=== PATIENT | male | born 1945 | race Caucasian/White ===

== ENCOUNTER → 2020-06-18 | Outpatient (CLI) | payer MEDICARE, OTHER ==
[~2020-06-18] MED LIST: ASPI-479 PO; FISH12002 PO; LISI-729 PO; LORA-404 PO; METF-397 PO; SIMV20TA26 PO
== END ==
LOC: GIR 16:25
PROVIDERS: ATTEND Family Medicine
DX: Z01.89 Encounter for other specified special examinations (principal)
CPT/HCPCS: 84132

== ENCOUNTER → 2020-06-28 | Outpatient (CLI) | payer MEDICARE ==
--- NOTE | 2020-06-28 20:00 | Diagnostic Imaging Report ---
EXAM: PET/CT INDICATION: Chest wall mass TECHNIQUE: PET/CT imaging was obtained from the base of the skull through the pelvis after the administration of 10.92 of F-18 fluorodeoxyglucose injected into the right antecubital fossa. CT imaging was utilized for localization and attenuation correction purposes. The low energy CT utilized for attenuation correction is not considered to be of high enough spatial resolution to allow in and of itself a separate anatomical analysis. Height: 5' 6" Weight: 170 pounds. Blood glucose: 91. COMPARISON: There are no prior PET/CT examinations available for comparison. The recent CT chest exam performed at [facility] in [place], [place], on 06/16/2020 noted a mass density along the posterior aspect of the right upper lobe measuring 4.9 x 3.5 cm. This mass did appear to be eroding the right 3rd rib and the right transverse process of the 3rd thoracic vertebra. On this exam, the mass is again identified. This mass is intensely hypermetabolic with a maximum SUV of 10.0. Consequently, I feel this mass should be considered neoplastic until proven otherwise. The previous CT chest exam also identified a 2.8 x 2.1 cm well-circumscribed nodule with a few internal calcifications along the medial aspect of the left lung base. That finding is again identified on this study and seems no different in size or appearance. This lesion is not hypermetabolic with a maximum SUV of only 1.5. I do feel this is most likely a benign process, such as a hamartoma. There is a small focus of slightly increased activity in the distal esophagus. The maximum SUV in this area is only 2.9. This could be secondary to physiologic activity alone. The possibility of mild esophagitis should also be considered.. It would be much less likely that there is an underlying neoplastic process in this region. The CT images show some thickening of the wall of the esophagus in this area but this may be secondary to incomplete distention. If further evaluation is desired, then either an upper gastrointestinal exam or preferably endoscopy would be recommended. There is no other hypermetabolic activity to suggest the presence of malignancy. Physiologic activity is seen in the kidneys, bowel, bladder and brain. The CT images failed to show any sign of an acute abnormality. IMPRESSION: 1. The large mass along the posterior aspect of the right upper lobe seen previously is intensely hypermetabolic and consequently should be considered neoplastic until proven otherwise. 2. The benign-appearing nodular density in the medial aspect of the left lung base is not hypermetabolic. 3. The slightly increased activity in the distal esophagus is of uncertain etiology. Considerations and recommendations as above. 4. There is no other hypermetabolic activity to suggest the presence of malignancy. Dictated by: Dictated on workstation # [id number]
== END ==
LOC: RAD 10:00
PROVIDERS: ATTEND Nurse Practitioner Family
DX: R91.8 Other nonspecific abnormal finding of lung field (principal); M25.511 Pain in right shoulder
CPT/HCPCS: 78815; A9552

== ENCOUNTER 2020-06-30 07:26 | Outpatient (CLI) | payer MEDICARE ==
[~2020-06-30] VITALS: Ht 167.6 cm; Wt 75.8 kg
[2020-06-30] VITALS (12 sets, daily range): BP systolic 112–174; BP diastolic 60–89
[2020-06-30 07:57] LABS: HEMOGLOBIN 12.7 g/dL (13.3-17.7); MEAN PLATELET VOLUME 9.8 fL (9.0-12.2); WHITE BLOOD COUNT 8.1 10^3/uL (4.3-11.0)
[2020-06-30 08:24] LABS: INR 1.1 (0.8-1.4); PROTHROMBIN TIME PATIENT 14.2 SEC (12.2-14.7)
[2020-06-30] MEDS ORDERED: LORA-404 PO (08:25)
[2020-06-30] MEDS ORDERED: ASPI-479 PO (08:27)
[2020-06-30] MEDS ORDERED: METF-397 PO (08:27)
[2020-06-30] MEDS ORDERED: LISI-729 PO (08:27)
[2020-06-30] MEDS ORDERED: FISH12002 PO (08:27)
[2020-06-30] MEDS ORDERED: SIMV20TA26 PO (08:27)
[2020-06-30] MEDS ORDERED: LIDOCAINE 1% INJ 20 ML 20 ML VIAL INJ ONE (08:30)
[2020-06-30] MEDS ORDERED: NS IV 500 ML 500 ML IV PRN (08:30)
[2020-06-30] MEDS ORDERED: MIDAZOLAM 2 MG/2 ML (VERSED) VIAL IVP ONE (08:30)
[2020-06-30] MEDS ORDERED: fentaNYL INJ 100 MCG/2 ML AMP IVP ONE (08:30)
--- NOTE | 2020-06-30 11:47 | Diagnostic Imaging Report ---
INDICATION: Status post lung biopsy. COMPARISON: None FINDINGS: Single frontal radiographic view of the chest was obtained and demonstrates no pneumothorax status post lung biopsy. There is prominent opacity within the medial margins of the right apex. This corresponds to biopsied lesion. There is no large effusion. Cardiac silhouette and pulmonary vasculature are within normal limits. Osseous structures show no gross acute abnormalities. IMPRESSION: 1. No pneumothorax status post right lung lesion biopsy. Dictated by: Dictated on workstation # [id number]
--- NOTE | 2020-06-30 11:56 | Diagnostic Imaging Report ---
INDICATION: Right lung mass. Patient presents for CT-guided biopsy. TECHNIQUE: All CT scans use one or more of the following dose optimizing techniques: automated exposure control, MA and/or KvP adjustment based on patient size and exam type or iterative reconstruction. DETAILS OF THE PROCEDURE: The patient was brought to the CT suite and placed on the table in the prone position. Axial imaging through the chest was performed to evaluate for an appropriate entry site. The procedure was performed utilizing conscious sedation with Radiology nursing and constant patient monitoring. The patient was given 50 mg of Fentanyl intravenously. The total procedure time was 7 minutes. The upper right posterior thorax was prepped and draped in the usual sterile fashion. A small amount of 1% lidocaine was utilized for local anesthesia. A 20-gauge coaxial Temno needle was advanced and placed with its tip within the mass in the right lung apex. Three core biopsies were obtained. A blood patch was injected during needle removal. Hemostasis was obtained using manual compression. The patient tolerated the procedure well and left the Department in stable condition. A chest x-ray will be obtained in 2 hours to evaluate for pneumothorax. No complicating features were identified on post procedure images. IMPRESSION: Successful CT-guided right lung mass biopsy. Pathology results are currently pending. Dictated by: Dictated on workstation # [id number]
--- NOTE | 2020-06-30 15:47 | Pre-Op Note & Conscious Sedat ---
Pre-Operative Progress Note H&P Reviewed The H&P was reviewed, patient examined and no changes noted. Date H&P Reviewed: Jun 30, 2020 Time H&P Reviewed: 09:00 Pre-Op Diagnosis: Lung mass Conscious Sedation Pre-Proced Time 09:00 ASA Score 2 For ASA 3 and 4: Consider anesthesia and medical clearance. Also, for patients with a history of failed moderate sedation consider anesthesia. Airway Lungs Heart ASA score ASA 1: a normal healthy patient ASA 2: a patient with a mild systemic disease (mid diabetes, controlled hypertension, obesity ASA 3: a patient with a severe systemic disease that limits activity (angina, COPD, prior Myocardial infarction) ASA 4: a patient with an incapacitating disease that is a constant threat to life (CHF, renal failure) ASA 5: a moribund patient not expected to survive 24 hrs. (ruptured aneurysm) ASA 6: a declared brain- patient whose organs are being harvested. For emergent operations, add the letter E after the classification Mallampati Classification Grade 2 Sedation Plan Analgesia, Amnesia, Plan communicated to team members, Discussed options with patient/fam, Discussed risks with patient/fam The patient is an appropriate candidate to undergo the planned procedure, sedation, and anesthesia. The patient immediately re-assessed prior to indication. VIVEK SEWELL MD Jun 30, 2020 15:47
== END 2020-06-30 11:40 | disposition home or self-care (01) ==
LOC: SDC 07:26
PROVIDERS: ATTEND Nurse Practitioner Family
DX: R91.8 Other nonspecific abnormal finding of lung field (principal)
CPT/HCPCS: 36415; 71045; 77012; 85027; 85610; 85730

== ENCOUNTER 2020-08-03 10:18 | Outpatient (CLI) | payer MEDICARE ==
[~2020-08-03] VITALS: Ht 167.6 cm; Wt 79.5 kg
[2020-08-03] MEDS ORDERED: HYDR-3817 PO (10:34)
[2020-08-03] MEDS ORDERED: OMEP40CA27 PO (10:34)
[2020-08-04] MEDS ORDERED: HYDR-3817 PO (09:11)
== END 2020-08-03 10:49 | disposition home or self-care (01) ==
LOC: PREOP 10:18
PROVIDERS: ATTEND Surgery
DX: Z01.818 Encounter for other preprocedural examination (principal)

== ENCOUNTER 2020-08-04 08:34 | Day surgery (SDC) | payer MEDICARE ==
[~2020-08-04] VITALS: Ht 167.6 cm; Wt 79.5 kg
[2020-08-04] VITALS (8 sets, daily range): BP systolic 111–156; BP diastolic 54–76
[~2020-08-04 08:34] MED LIST changes: +HYDR-3817 PO; +OMEP40CA27 PO
[2020-08-04] MEDS ORDERED: ceFAZolin 2 GM IV Premixed 50 ML ONE (08:37)
[2020-08-04] MEDS: LACTATED RINGERS 1,000 ML IV PRN ×2 (08:45→10:58)
[2020-08-04] MEDS ORDERED: fentaNYL INJ 100 MCG/2 ML AMP ONE (08:58)
[2020-08-04] MEDS ORDERED: PROPOFOL INJECTION 50 ML IV ONE (08:58)
--- NOTE | 2020-08-04 09:09 | Progress Note-Pre Operative ---
Pre-Operative Progress Note H&P Reviewed The H&P was reviewed, patient examined and no changes noted. Date Seen by Provider: August 04, 2020 Time Seen by Provider: 09:05 Date H&P Reviewed: August 04, 2020 Time H&P Reviewed: 09:00 Pre-Operative Diagnosis: Right Lung cancer DEEPA CHEN APRN August 04, 2020 09:09
[2020-08-04] MEDS ORDERED: HYDR-3817 PO (09:11)
--- NOTE | 2020-08-04 09:12 | Discharge Inst-Surgical ---
D/C Lap Instructions-KIDO Reconcile Patient Problems Problems Reviewed?: Yes New, Converted, or Re-Newed RX: RX on Chart Follow Up Appt as needed Activity as tolerated No driving for 24 hours No driving while on pain medications Incentive Spirometry use every 2 hours while awake Regular Diet Symptoms to Report: Fever over 101 degree F, Nausea/Vomiting Infection Signs and Symptoms to report: Increased redness, Foul odor of wound, Increased drainage Bathing instructions: May shower Operative Area Clean/Dry; Keep incision clean/dry If any problems/questions: Contact your physician or go to Emergency Room DEEPA CHEN APRN August 04, 2020 09:12
[2020-08-04] MEDS ORDERED: HYDROcodone/APAP 5 MG/325 MG (LORTAB) TAB PO ONE (09:15)
[2020-08-04] MEDS ORDERED: morphine INJ 10 MG/ML 1ML (SYR OR VIAL) IVP PRN (09:15)
[2020-08-04] MEDS ORDERED: ACETAMINOPHEN 325 MG TABLET PO PRN (09:15)
[2020-08-04] MEDS ORDERED: ONDANSETRON 4 MG/2 ML (SDV) Z0FRAN IVP PRN (09:15)
[2020-08-04] MEDS ORDERED: LIDOCAINE/EPI 1%-1:100,000 (XYLOCAINE) 20ML ONE (09:42)
[2020-08-04] MEDS ORDERED: 0.9% SODIUM CHLORIDE PF INJ 20 ML VIAL ONE (09:42)
[2020-08-04] MEDS ORDERED: HEParin (CENTRAL IV FLUSH) 500 UNIT/5 ML SYR ONE (09:42)
[2020-08-04] MEDS ORDERED: ceFAZolin 2 GM IV Premixed 50 ML IV ONE (10:00)
--- NOTE | 2020-08-04 10:48 | Progress Note-Post Operative ---
Post-Operative Progess Note Surgeon (s)/Photographic Intelligence Officer (s) Surgeon PHONG DUARTE MD Photographic Intelligence Officer: gary cruz DRUG ABUSE RESISTANCE EDUCATION OFFICER Pre-Operative Diagnosis right lung cancer Post-Operative Diagnosis same Procedure & Operative Findings Date of Procedure 08/04/20 Procedure Performed/Findings left subclavian groshong implantable catheter under flouroscopy. Anesthesia Type mac with local Estimated Blood Loss Estimated blood loss (mL): minimal Specimens/Packing Specimens Removed none PHONG DUARTE MD August 04, 2020 10:48
[2020-08-04] MEDS ORDERED: morphine INJ 10 MG/ML 1ML (SYR OR VIAL) IVP ONE (11:00)
--- NOTE | 2020-08-04 11:00 | Anesthesia-General Post-Op ---
MAC Patient Condition Mental Status/LOC: Same as Preop Cardiovascular: Satisfactory Nausea/Vomiting: Absent Respiratory: Satisfactory Pain: Controlled Complications: Absent Post Op Complications Complications None Follow Up Care/Instructions Patient Instructions None needed. Anesthesiology Discharge Order Discharge Order Patient is doing well, no complaints, stable vital signs, no apparent adverse anesthesia problems. No complications reported per nursing. DAIN WHITFIELD CRNA August 04, 2020 11:00
--- NOTE | 2020-08-04 11:34 | Diagnostic Imaging Report ---
INDICATION: Evaluation of catheter placement. TECHNIQUE: AP view of the chest is obtained with comparison made to study of 06/30/2020. FINDINGS: There has been placement of left anterior chest wall port with catheter tip projecting over the mid superior vena cava. There is continued right apical pulmonary mass without evidence of pneumothorax. Prominent interstitial markings are seen bilaterally. No definite pleural fluid is seen. IMPRESSION: No evidence of complication post placement of left anterior chest wall port. There is continued right upper lobe opacity and correlation with previous biopsy results would be useful. Dictated by: Dictated on workstation # [id number]
--- NOTE | 2020-08-04 12:33 | Diagnostic Imaging Report ---
Indication: History of right lung mass. COMPARISON: Chest radiograph from later same day Total fluoroscopy time: 3 seconds Total number fluoroscopic images saved: 1 FINDINGS: Single intraoperative image intensifier view of the chest was obtained during Port-A-Cath placement. Images provided shows left-sided approach. Central tip of the catheter is not well-visualized. Evaluation for pneumothorax is suboptimal given fluoroscopic modality. Please note, interpreting radiologist was not present during the procedure. IMPRESSION: 1. Fluoroscopic guidance provided during Port-A-Cath placement as above. Dictated by: Dictated on workstation # [id number]
--- NOTE | 2020-08-04 17:28 | OPERATIVE REPORT ---
DATE OF SERVICE: 08/04/2020 ATTENDING PRIMARY CARE PHYSICIAN: Tong Yadav DO PREOPERATIVE DIAGNOSIS: Right lung cancer. POSTOPERATIVE DIAGNOSIS: Right lung cancer. PROCEDURE: Placement of left subclavian Groshong implantable catheter under fluoroscopy. SURGEON: Phong Duarte MD CHANGE OF ADDRESS CLERK: Bashir Suero APRN. ANESTHESIA: Monitored anesthesia care with local. ESTIMATED BLOOD LOSS: Minimal. FINDINGS: Catheter tip at superior vena cava -- right atrial junction. DISPOSITION: The patient tolerated the procedure well. INDICATIONS: The patient is a 75-year-old male known to us. He was initially referred over to us on 05/02/2020 for a right upper abdominal quadrant pain and did undergo an ultrasound, which was positive for gallstones. He continued to have discomfort, especially upon coughing and underwent further workup, which encompassed a CT scan, which did show a mass of the posterior aspect of the right lung, 4.9 cm in size. He was then referred to pulmonology as well as oncology and the lesion was consistent with a carcinoma. The patient will now undergo chemotherapy and will require Groshong implantable catheter. DESCRIPTION OF PROCEDURE: The patient was brought to the operating room, laid supine on the table. After adequate IV pain and sedative medications and monitored anesthesia care, the chest and neck were prepped and draped in standard surgical fashion. A 1% lidocaine with epinephrine was used to anesthetize the left subclavian region and the left subclavian vein was then cannulated with drawing of venous blood. The guidewire was then inserted under fluoroscopy. A skin incision was then made using a 15 blade and the dilator and sheath were then placed over the guidewire. The guidewire and dilator were then removed and the Groshong implantable catheter was placed until the catheter tip was at the superior vena caval -- right atrial junction. The sheath was then removed. The inner wire within the catheter was then removed and the catheter cut down to size and port placed onto the catheter. We then proceeded to create the chest reservoir by extending the skin incision laterally using a 15 blade. A plane was then created between the subcutaneous fat and anterior pectoralis fascia using blunt dissection as well as electrocautery. The port was then placed into the reservoir and sutured to the pectoralis fascia using interrupted 3-0 Vicryl sutures. The subcutaneous tissue was then reapproximated using interrupted 3-0 Vicryl sutures and the skin was closed using 4-0 Monocryl running subcuticular suture. Wound was then cleaned and covered with Dermabond. The patient tolerated the procedure well. We will get a post-procedure chest x-ray and once placement was confirmed, the port may be accessed and used at any time. Job ID: [id number] DocumentID: [id number] Dictated Date: 08/04/2020 10:59:51 Oil Deliverer Date: 08/04/2020 17:27:28 Dictated By: PHONG DUARTE MD
== END 2020-08-04 12:30 | disposition home or self-care (01) ==
LOC: SDC 08:34
PROVIDERS: ATTEND Surgery
DX: C34.11 Malignant neoplasm of upper lobe, right bronchus or lung (principal); I10 Essential (primary) hypertension; E78.5 Hyperlipidemia, unspecified; E78.00 Pure hypercholesterolemia, unspecified; E11.9 Type 2 diabetes mellitus without complications; Z79.84 Long term (current) use of oral hypoglycemic drugs; Z87.891 Personal history of nicotine dependence; Z79.899 Other long term (current) drug therapy; Z79.82 Long term (current) use of aspirin; Z79.891 Long term (current) use of opiate analgesic; Z90.49 Acquired absence of other specified parts of digestive tract; Z80.6 Family history of leukemia
CPT/HCPCS: 36561; 71045; 76000; 82947; 87081; C1788

== ENCOUNTER 2020-09-24 09:00 | Outpatient (CLI) | payer MEDICARE ==
[~2020-09-24] VITALS: Ht 152 cm; Wt 79.5 kg
[~2020-09-24 09:00] MED LIST changes: -OMEP40CA27 PO; +OMEP40CA6 PO
[2020-09-24] MEDS ORDERED: cefTRIAXone 1,000 MG VIAL ONE (09:42)
[2020-09-24] MEDS ORDERED: WATER (STERILE) FOR INJECTION 0 ML ONE (09:43)
[2020-09-24 09:45] VITALS: BP 130/63
[2020-09-24] MEDS ORDERED: cefTRIAXone 2,000 MG/SWFI 20 ML IV PUSH IV ONE ×2 (09:45)
== END 2020-09-24 10:30 ==
LOC: SDC 09:00
PROVIDERS: ATTEND Internal Medicine Hematology & Oncology
DX: Z51.81 Encounter for therapeutic drug level monitoring (principal)
CPT/HCPCS: 96374

== ENCOUNTER → 2020-09-30 | Outpatient (CLI) | payer MEDICARE ==
[~2020-09-30] MED LIST changes: +CATHETER FLUSH 10 ML SYR IV PRN; +HOLD METFORMIN - RECEIVED CONTRAST 20 ML VIAL IV SCH; +IOHEXOL 350 MG/ML 100 ML (OMNIPAQUE 350) VIAL IV ONE; +NS 100 ML (IVPB) BAG IV ONE
--- NOTE | 2020-09-30 13:15 | Diagnostic Imaging Report ---
PROCEDURE: CT abdomen and pelvis with and without contrast. TECHNIQUE: Precontrast acquisitions were acquired through the abdomen and pelvis. Multiple contiguous axial images were obtained through the abdomen and pelvis after the administration of intravenous contrast. Auto Exposure Controls were utilized during the CT exam to meet ALARA standards for radiation dose reduction. INDICATION: Right lower leg edema. History of lung cancer. History of radiation therapy. COMPARISON: None FINDINGS: Included portions of the lung bases are clear. CT ABDOMEN: Small bowel loops are nondistended. Normal appendix is identified. Moderate air and stool is noted scattered throughout the colon. Nonobstructive left renal calculus is identified. Otherwise, the kidneys, adrenal glands, spleen, pancreas, and liver have a normal CT appearance. There is no loculated fluid collection, free fluid, nor free air within the abdomen. No abnormal mesenteric or retroperitoneal adenopathy is seen. Osseous structures show no acute abnormalities. CT PELVIS: Urinary bladder is grossly unremarkable. There is no loculated fluid collection, free fluid, or free air within the pelvis. Fat-containing right inguinal hernia is noted. No abnormal adenopathy is seen. There is moderate scattered calcified aortic and arterial atherosclerosis. Osseous structures show no acute abnormalities. IMPRESSION: 1. No acute abnormality is seen within the abdomen or pelvis. 2. Moderate colonic air and stool. Please correlate for constipation. 3. Nonobstructive left renal calculus. Dictated by: Dictated on workstation # [id number]
== END ==
LOC: RAD 11:37
PROVIDERS: ATTEND Internal Medicine Hematology & Oncology
DX: C34.11 Malignant neoplasm of upper lobe, right bronchus or lung (principal); C79.51 Secondary malignant neoplasm of bone; N20.0 Calculus of kidney; R60.0 Localized edema; Z92.3 Personal history of irradiation
CPT/HCPCS: 74178

== ENCOUNTER 2020-10-18 10:33 | Outpatient (RCR) | payer MEDICARE ==
[2020-07-29 08:56] LABS: BASOPHILS # (AUTO) 0.1 10^3/uL (0.0-0.1); BASOPHILS % (AUTO) 1 % (0-10); EOSINOPHILS # (AUTO) 0.2 10^3/uL (0.0-0.3); EOSINOPHILS % (AUTO) 3 % (0-10); HEMATOCRIT 37 % (40-54); HEMOGLOBIN 11.1 g/dL (13.3-17.7); LYMPHOCYTES # (AUTO) 1.5 10^3/uL (1.0-4.0); LYMPHOCYTES % (AUTO) 21 % (12-44); MEAN CORPUSCULAR HEMOGLOBIN 26 pg (25-34); MEAN CORPUSCULAR HGB CONC 30 g/dL (32-36); MEAN CORPUSCULAR VOLUME 86 fL (80-99); MEAN PLATELET VOLUME 9.3 fL (9.0-12.2); MONOCYTES # (AUTO) 0.7 10^3/uL (0.0-1.0); MONOCYTES % (AUTO) 10 % (0-12); NEUTROPHILS # (AUTO) 4.6 10^3/uL (1.8-7.8); NEUTROPHILS % (AUTO) 64 % (42-75); PLATELET COUNT 319 10^3/uL (130-400); WHITE BLOOD COUNT 7.2 10^3/uL (4.3-11.0)
[2020-07-29 09:19] LABS: ALANINE AMINOTRANSFERASE 17 U/L (0-55); ALBUMIN 3.4 GM/DL (3.2-4.5); ALKALINE PHOSPHATASE 82 U/L (40-136); BILIRUBIN,TOTAL 0.4 MG/DL (0.1-1.0); BUN/CREATININE RATIO 14; CALCIUM 8.9 MG/DL (8.5-10.1); CARBON DIOXIDE 26 MMOL/L (21-32); CHLORIDE 103 MMOL/L (98-107); CREATININE SERUM 0.94 MG/DL (0.60-1.30); GFR ESTIMATED > 60; GLUCOSE 134 MG/DL (70-105); POTASSIUM 3.9 MMOL/L (3.6-5.0); SODIUM 138 MMOL/L (135-145)
[2020-08-24 10:17] LABS: BASOPHILS % (AUTO) 0 % (0-10); EOSINOPHILS % (AUTO) 0 % (0-10); HEMATOCRIT 35 % (40-54); HEMOGLOBIN 10.3 g/dL (13.3-17.7); LYMPHOCYTES # (AUTO) 0.7 10^3/uL (1.0-4.0); LYMPHOCYTES % (AUTO) 6 % (12-44); MEAN CORPUSCULAR HEMOGLOBIN 25 pg (25-34); MEAN CORPUSCULAR HGB CONC 30 g/dL (32-36); MEAN CORPUSCULAR VOLUME 83 fL (80-99); MEAN PLATELET VOLUME 9.2 fL (9.0-12.2); MONOCYTES # (AUTO) 0.5 10^3/uL (0.0-1.0); MONOCYTES % (AUTO) 4 % (0-12); NEUTROPHILS # (AUTO) 10.8 10^3/uL (1.8-7.8); NEUTROPHILS % (AUTO) 90 % (42-75); PLATELET COUNT 398 10^3/uL (130-400); WHITE BLOOD COUNT 12.1 10^3/uL (4.3-11.0)
[2020-08-24 10:36] LABS: ALANINE AMINOTRANSFERASE 12 U/L (0-55); ALBUMIN 3.6 GM/DL (3.2-4.5); ALKALINE PHOSPHATASE 69 U/L (40-136); BILIRUBIN,TOTAL 0.3 MG/DL (0.1-1.0); BUN/CREATININE RATIO 22; CALCIUM 9.8 MG/DL (8.5-10.1); CARBON DIOXIDE 24 MMOL/L (21-32); CHLORIDE 103 MMOL/L (98-107); CREATININE SERUM 1.09 MG/DL (0.60-1.30); GFR ESTIMATED > 60; GLUCOSE 173 MG/DL (70-105); POTASSIUM 4.2 MMOL/L (3.6-5.0); SODIUM 137 MMOL/L (135-145); TOTAL PROTEIN 8.6 GM/DL (6.4-8.2)
[2020-08-31 10:14] LABS: BASOPHILS % (AUTO) 0 % (0-10); EOSINOPHILS # (AUTO) 0.2 10^3/uL (0.0-0.3); EOSINOPHILS % (AUTO) 7 % (0-10); HEMATOCRIT 36 % (40-54); HEMOGLOBIN 10.5 g/dL (13.3-17.7); LYMPHOCYTES # (AUTO) 0.8 10^3/uL (1.0-4.0); LYMPHOCYTES % (AUTO) 22 % (12-44); MEAN CORPUSCULAR HEMOGLOBIN 24 pg (25-34); MEAN CORPUSCULAR HGB CONC 30 g/dL (32-36); MEAN CORPUSCULAR VOLUME 82 fL (80-99); MEAN PLATELET VOLUME 9.3 fL (9.0-12.2); MONOCYTES # (AUTO) 0.3 10^3/uL (0.0-1.0); MONOCYTES % (AUTO) 8 % (0-12); NEUTROPHILS # (AUTO) 2.1 10^3/uL (1.8-7.8); NEUTROPHILS % (AUTO) 61 % (42-75); PLATELET COUNT 247 10^3/uL (130-400); WHITE BLOOD COUNT 3.5 10^3/uL (4.3-11.0)
[2020-08-31 10:32] LABS: BUN/CREATININE RATIO 18; CARBON DIOXIDE 24 MMOL/L (21-32); CHLORIDE 102 MMOL/L (98-107); CREATININE SERUM 0.87 MG/DL (0.60-1.30); GFR ESTIMATED > 60; GLUCOSE 136 MG/DL (70-105); POTASSIUM 4.2 MMOL/L (3.6-5.0); SODIUM 136 MMOL/L (135-145)
[2020-09-07 10:14] LABS: BASOPHILS % (AUTO) 1 % (0-10); EOSINOPHILS # (AUTO) 0.1 10^3/uL (0.0-0.3); EOSINOPHILS % (AUTO) 3 % (0-10); HEMATOCRIT 32 % (40-54); HEMOGLOBIN 9.4 g/dL (13.3-17.7); LYMPHOCYTES # (AUTO) 0.5 10^3/uL (1.0-4.0); LYMPHOCYTES % (AUTO) 14 % (12-44); MEAN CORPUSCULAR HEMOGLOBIN 25 pg (25-34); MEAN CORPUSCULAR HGB CONC 30 g/dL (32-36); MEAN CORPUSCULAR VOLUME 82 fL (80-99); MONOCYTES # (AUTO) 0.6 10^3/uL (0.0-1.0); MONOCYTES % (AUTO) 17 % (0-12); NEUTROPHILS # (AUTO) 2.2 10^3/uL (1.8-7.8); NEUTROPHILS % (AUTO) 65 % (42-75); PLATELET COUNT 145 10^3/uL (130-400); WHITE BLOOD COUNT 3.4 10^3/uL (4.3-11.0)
[2020-09-07 10:28] LABS: BUN/CREATININE RATIO 19; CARBON DIOXIDE 26 MMOL/L (21-32); CHLORIDE 104 MMOL/L (98-107); CREATININE SERUM 0.84 MG/DL (0.60-1.30); GFR ESTIMATED > 60; GLUCOSE 141 MG/DL (70-105); SODIUM 139 MMOL/L (135-145)
[2020-09-13 09:16] LABS: BASOPHILS % (AUTO) 0 % (0-10); EOSINOPHILS % (AUTO) 0 % (0-10); HEMATOCRIT 30 % (40-54); HEMOGLOBIN 8.9 g/dL (13.3-17.7); LYMPHOCYTES # (AUTO) 0.4 10^3/uL (1.0-4.0); LYMPHOCYTES % (AUTO) 7 % (12-44); MEAN CORPUSCULAR HEMOGLOBIN 24 pg (25-34); MEAN CORPUSCULAR HGB CONC 30 g/dL (32-36); MEAN CORPUSCULAR VOLUME 81 fL (80-99); MEAN PLATELET VOLUME 8.7 fL (9.0-12.2); MONOCYTES # (AUTO) 0.8 10^3/uL (0.0-1.0); MONOCYTES % (AUTO) 12 % (0-12); NEUTROPHILS # (AUTO) 4.7 10^3/uL (1.8-7.8); NEUTROPHILS % (AUTO) 76 % (42-75); PLATELET COUNT 329 10^3/uL (130-400); WHITE BLOOD COUNT 6.2 10^3/uL (4.3-11.0)
[2020-09-13 09:40] LABS: ALANINE AMINOTRANSFERASE 12 U/L (0-55); ALBUMIN 3.2 GM/DL (3.2-4.5); ALKALINE PHOSPHATASE 77 U/L (40-136); BILIRUBIN,TOTAL 0.2 MG/DL (0.1-1.0); BUN/CREATININE RATIO 24; CALCIUM 9.4 MG/DL (8.5-10.1); CARBON DIOXIDE 24 MMOL/L (21-32); CHLORIDE 104 MMOL/L (98-107); CREATININE SERUM 0.83 MG/DL (0.60-1.30); GFR ESTIMATED > 60; GLUCOSE 172 MG/DL (70-105); POTASSIUM 4.1 MMOL/L (3.6-5.0); SODIUM 139 MMOL/L (135-145); TOTAL PROTEIN 7.8 GM/DL (6.4-8.2)
[2020-09-20 10:18] LABS: BASOPHILS % (AUTO) 1 % (0-10); EOSINOPHILS # (AUTO) 0.1 10^3/uL (0.0-0.3); EOSINOPHILS % (AUTO) 4 % (0-10); HEMATOCRIT 32 % (40-54); HEMOGLOBIN 9.4 g/dL (13.3-17.7); LYMPHOCYTES # (AUTO) 0.5 10^3/uL (1.0-4.0); LYMPHOCYTES % (AUTO) 19 % (12-44); MEAN CORPUSCULAR HEMOGLOBIN 24 pg (25-34); MEAN CORPUSCULAR HGB CONC 30 g/dL (32-36); MEAN CORPUSCULAR VOLUME 81 fL (80-99); MEAN PLATELET VOLUME 8.6 fL (9.0-12.2); MONOCYTES # (AUTO) 0.3 10^3/uL (0.0-1.0); MONOCYTES % (AUTO) 13 % (0-12); NEUTROPHILS # (AUTO) 1.5 10^3/uL (1.8-7.8); NEUTROPHILS % (AUTO) 60 % (42-75); PLATELET COUNT 228 10^3/uL (130-400); WHITE BLOOD COUNT 2.6 10^3/uL (4.3-11.0)
[2020-09-20 10:44] LABS: BUN/CREATININE RATIO 30; CALCIUM 8.9 MG/DL (8.5-10.1); CARBON DIOXIDE 25 MMOL/L (21-32); CHLORIDE 102 MMOL/L (98-107); CREATININE SERUM 0.92 MG/DL (0.60-1.30); GFR ESTIMATED > 60; GLUCOSE 133 MG/DL (70-105); POTASSIUM 4.2 MMOL/L (3.6-5.0); SODIUM 136 MMOL/L (135-145)
[2020-09-27 08:47] LABS: BASOPHILS % (AUTO) 0 % (0-10); EOSINOPHILS # (AUTO) 0.1 10^3/uL (0.0-0.3); EOSINOPHILS % (AUTO) 2 % (0-10); HEMATOCRIT 28 % (40-54); HEMOGLOBIN 8.3 g/dL (13.3-17.7); LYMPHOCYTES # (AUTO) 0.4 10^3/uL (1.0-4.0); LYMPHOCYTES % (AUTO) 11 % (12-44); MEAN CORPUSCULAR HEMOGLOBIN 24 pg (25-34); MEAN CORPUSCULAR HGB CONC 30 g/dL (32-36); MEAN CORPUSCULAR VOLUME 81 fL (80-99); MEAN PLATELET VOLUME 9.2 fL (9.0-12.2); MONOCYTES # (AUTO) 0.7 10^3/uL (0.0-1.0); MONOCYTES % (AUTO) 19 % (0-12); NEUTROPHILS # (AUTO) 2.3 10^3/uL (1.8-7.8); NEUTROPHILS % (AUTO) 67 % (42-75); PLATELET COUNT 150 10^3/uL (130-400); WHITE BLOOD COUNT 3.5 10^3/uL (4.3-11.0)
[2020-09-27 09:08] LABS: CREATININE SERUM 1.27 MG/DL (0.60-1.30); POTASSIUM 4.6 MMOL/L (3.6-5.0)
[2020-09-29 11:38] LABS: BASOPHILS % (AUTO) 1 % (0-10); EOSINOPHILS # (AUTO) 0.1 10^3/uL (0.0-0.3); EOSINOPHILS % (AUTO) 3 % (0-10); HEMATOCRIT 28 % (40-54); HEMOGLOBIN 8.3 g/dL (13.3-17.7); LYMPHOCYTES # (AUTO) 0.5 10^3/uL (1.0-4.0); LYMPHOCYTES % (AUTO) 13 % (12-44); MEAN CORPUSCULAR HEMOGLOBIN 24 pg (25-34); MEAN CORPUSCULAR HGB CONC 30 g/dL (32-36); MEAN CORPUSCULAR VOLUME 81 fL (80-99); MEAN PLATELET VOLUME 9.1 fL (9.0-12.2); MONOCYTES # (AUTO) 0.7 10^3/uL (0.0-1.0); MONOCYTES % (AUTO) 19 % (0-12); NEUTROPHILS # (AUTO) 2.3 10^3/uL (1.8-7.8); NEUTROPHILS % (AUTO) 63 % (42-75); PLATELET COUNT 203 10^3/uL (130-400); WHITE BLOOD COUNT 3.7 10^3/uL (4.3-11.0)
[2020-09-29 11:58] LABS: ALBUMIN 3.3 GM/DL (3.2-4.5); BILIRUBIN,TOTAL 0.2 MG/DL (0.1-1.0); CALCIUM 9.2 MG/DL (8.5-10.1); CREATININE SERUM 1.23 MG/DL (0.60-1.30); POTASSIUM 4.8 MMOL/L (3.6-5.0); TOTAL PROTEIN 7.5 GM/DL (6.4-8.2)
[2020-09-30 10:21] LABS: BASOPHILS % (AUTO) 0 % (0-10); EOSINOPHILS # (AUTO) 0.1 10^3/uL (0.0-0.3); EOSINOPHILS % (AUTO) 3 % (0-10); HEMATOCRIT 27 % (40-54); HEMOGLOBIN 8.1 g/dL (13.3-17.7); LYMPHOCYTES # (AUTO) 0.5 10^3/uL (1.0-4.0); LYMPHOCYTES % (AUTO) 13 % (12-44); MEAN CORPUSCULAR HEMOGLOBIN 25 pg (25-34); MEAN CORPUSCULAR HGB CONC 30 g/dL (32-36); MEAN CORPUSCULAR VOLUME 82 fL (80-99); MEAN PLATELET VOLUME 8.8 fL (9.0-12.2); MONOCYTES # (AUTO) 0.7 10^3/uL (0.0-1.0); MONOCYTES % (AUTO) 18 % (0-12); NEUTROPHILS # (AUTO) 2.3 10^3/uL (1.8-7.8); NEUTROPHILS % (AUTO) 63 % (42-75); PLATELET COUNT 219 10^3/uL (130-400); WHITE BLOOD COUNT 3.6 10^3/uL (4.3-11.0)
[2020-09-30 10:38] LABS: CREATININE SERUM 1.36 MG/DL (0.60-1.30); POTASSIUM 4.7 MMOL/L (3.6-5.0)
[2020-10-05 10:35] LABS: BASOPHILS % (AUTO) 0 % (0-10); EOSINOPHILS # (AUTO) 0.1 10^3/uL (0.0-0.3); EOSINOPHILS % (AUTO) 2 % (0-10); HEMATOCRIT 29 % (40-54); HEMOGLOBIN 8.3 g/dL (13.3-17.7); LYMPHOCYTES # (AUTO) 0.6 10^3/uL (1.0-4.0); LYMPHOCYTES % (AUTO) 9 % (12-44); MEAN CORPUSCULAR HEMOGLOBIN 24 pg (25-34); MEAN CORPUSCULAR HGB CONC 29 g/dL (32-36); MEAN CORPUSCULAR VOLUME 85 fL (80-99); MEAN PLATELET VOLUME 8.5 fL (9.0-12.2); MONOCYTES # (AUTO) 0.9 10^3/uL (0.0-1.0); MONOCYTES % (AUTO) 14 % (0-12); NEUTROPHILS # (AUTO) 4.5 10^3/uL (1.8-7.8); NEUTROPHILS % (AUTO) 71 % (42-75); PLATELET COUNT 267 10^3/uL (130-400); WHITE BLOOD COUNT 6.4 10^3/uL (4.3-11.0)
[2020-10-05 10:52] LABS: ALANINE AMINOTRANSFERASE 25 U/L (0-55); ALBUMIN 3.2 GM/DL (3.2-4.5); ALKALINE PHOSPHATASE 66 U/L (40-136); BILIRUBIN,TOTAL 0.3 MG/DL (0.1-1.0); BUN/CREATININE RATIO 19; CALCIUM 9.2 MG/DL (8.5-10.1); CARBON DIOXIDE 26 MMOL/L (21-32); CHLORIDE 106 MMOL/L (98-107); CREATININE SERUM 0.81 MG/DL (0.60-1.30); GFR ESTIMATED > 60; GLUCOSE 125 MG/DL (70-105); POTASSIUM 4.2 MMOL/L (3.6-5.0); SODIUM 139 MMOL/L (135-145); TOTAL PROTEIN 7.7 GM/DL (6.4-8.2)
[~2020-10-18] VITALS: Ht 167.6 cm; Wt 81.2 kg
[~2020-10-18 10:33] MED LIST changes: +CARBOplatin 420 MG in D5W 50 ML IV(CANCER CTR) 50 ML IV SCH; -CATHETER FLUSH 10 ML SYR IV PRN; +CYANOCOBALAMIN INJ 1000 MCG/ML (CANCER CENTER) ONE; +FAMOTIDINE 20MG/2ML IV (CANCER CTR) IV SCH; +FOSAPREPITANT (CANCER CENTER) 150 MG in NS (IVPB) CANCER CENTER ONLY 150 ML IV SCH; +FUROSEMIDE 40 MG/4 ML INJ (CANCER CTR) IV ONE; -HOLD METFORMIN - RECEIVED CONTRAST 20 ML VIAL IV SCH; -IOHEXOL 350 MG/ML 100 ML (OMNIPAQUE 350) VIAL IV ONE; +LORazepam INJ 2 MG/ML VIAL CANCER CTR ONE; -NS 100 ML (IVPB) BAG IV ONE; +NS IV 1000 ML (CANCER CTR) IV SCH; +NS IV SCH; +PEMETREXED DISODIUM IV SCH; +cefTRIAXone 2,000 MG/NS 50 ML IVPB (CANCER CTR) IV ONE; +diphenhydrAMINE 25 MG TAB (BENADRYL) CANCER CENTER PO SCH; +diphenhydrAMINE 50 MG/ML INJ (CANCER CENTER) ONE
[2020-10-18 10:58] LABS: BASOPHILS % (AUTO) 0 % (0-10); EOSINOPHILS # (AUTO) 0.1 10^3/uL (0.0-0.3); EOSINOPHILS % (AUTO) 2 % (0-10); HEMATOCRIT 30 % (40-54); HEMOGLOBIN 8.5 g/dL (13.3-17.7); LYMPHOCYTES # (AUTO) 0.9 10^3/uL (1.0-4.0); LYMPHOCYTES % (AUTO) 19 % (12-44); MEAN CORPUSCULAR HEMOGLOBIN 25 pg (25-34); MEAN CORPUSCULAR HGB CONC 29 g/dL (32-36); MEAN CORPUSCULAR VOLUME 88 fL (80-99); MEAN PLATELET VOLUME 8.8 fL (9.0-12.2); MONOCYTES # (AUTO) 0.6 10^3/uL (0.0-1.0); MONOCYTES % (AUTO) 12 % (0-12); NEUTROPHILS # (AUTO) 3.1 10^3/uL (1.8-7.8); NEUTROPHILS % (AUTO) 66 % (42-75); PLATELET COUNT 225 10^3/uL (130-400); WHITE BLOOD COUNT 4.7 10^3/uL (4.3-11.0)
[2020-10-18 11:15] LABS: ALANINE AMINOTRANSFERASE 16 U/L (0-55); ALBUMIN 3.2 GM/DL (3.2-4.5); ALKALINE PHOSPHATASE 63 U/L (40-136); BILIRUBIN,TOTAL 0.3 MG/DL (0.1-1.0); BUN/CREATININE RATIO 21; CALCIUM 8.9 MG/DL (8.5-10.1); CARBON DIOXIDE 25 MMOL/L (21-32); CHLORIDE 109 MMOL/L (98-107); CREATININE SERUM 0.82 MG/DL (0.60-1.30); GFR ESTIMATED > 60; GLUCOSE 107 MG/DL (70-105); POTASSIUM 4.1 MMOL/L (3.6-5.0); SODIUM 141 MMOL/L (135-145); TOTAL PROTEIN 7.8 GM/DL (6.4-8.2)
== END 2020-10-27 | disposition home or self-care (01) ==
LOC: ONC 10:33
PROVIDERS: ATTEND Internal Medicine Hematology & Oncology
DX: Z51.0 Encounter for antineoplastic radiation therapy (principal); C34.11 Malignant neoplasm of upper lobe, right bronchus or lung; C79.51 Secondary malignant neoplasm of bone; G89.3 Neoplasm related pain (acute) (chronic); J43.9 Emphysema, unspecified; E11.9 Type 2 diabetes mellitus without complications; I10 Essential (primary) hypertension; E78.00 Pure hypercholesterolemia, unspecified; K22.10 Ulcer of esophagus without bleeding; Z87.891 Personal history of nicotine dependence; Z79.84 Long term (current) use of oral hypoglycemic drugs; Z79.82 Long term (current) use of aspirin; Z79.899 Other long term (current) drug therapy; D64.9 Anemia, unspecified; L03.116 Cellulitis of left lower limb; L03.115 Cellulitis of right lower limb
CPT/HCPCS: 80053; 84443; 85025; G0463; 36591; 77280; 77290; 77295; 77300; 77307; 77334; 77336; 77417; 80048; 82274; 82728; 83540; 83550; 83735; 96365; 96367; 96372; 96374; 96375; 96411; 96413; 99204; 99213; 99214

== ENCOUNTER → 2020-10-19 | Outpatient (CLI) | payer MEDICARE ==
[~2020-10-19] MED LIST changes: -CARBOplatin 420 MG in D5W 50 ML IV(CANCER CTR) 50 ML IV SCH; -CYANOCOBALAMIN INJ 1000 MCG/ML (CANCER CENTER) ONE; -FAMOTIDINE 20MG/2ML IV (CANCER CTR) IV SCH; -FOSAPREPITANT (CANCER CENTER) 150 MG in NS (IVPB) CANCER CENTER ONLY 150 ML IV SCH; -FUROSEMIDE 40 MG/4 ML INJ (CANCER CTR) IV ONE; -LORazepam INJ 2 MG/ML VIAL CANCER CTR ONE; -NS IV 1000 ML (CANCER CTR) IV SCH; -NS IV SCH; -PEMETREXED DISODIUM IV SCH; -cefTRIAXone 2,000 MG/NS 50 ML IVPB (CANCER CTR) IV ONE; -diphenhydrAMINE 25 MG TAB (BENADRYL) CANCER CENTER PO SCH; -diphenhydrAMINE 50 MG/ML INJ (CANCER CENTER) ONE
== END ==
LOC: WOUNDCARE 08:51
PROVIDERS: ATTEND Surgery
DX: I89.0 Lymphedema, not elsewhere classified (principal); I87.323 Chronic venous hypertension (idiopathic) with inflammation of bilateral lower extremity; C34.90 Malignant neoplasm of unspecified part of unspecified bronchus or lung
CPT/HCPCS: 99213

== ENCOUNTER → 2020-10-24 | Outpatient (CLI) | payer MEDICARE | LOC: WOUNDCARE 09:51 | PROVIDERS: ATTEND Surgery | DX: C34.90 Malignant neoplasm of unspecified part of unspecified bronchus or lung (principal); I89.0 Lymphedema, not elsewhere classified; I87.333 Chronic venous hypertension (idiopathic) with ulcer and inflammation of bilateral lower extremity | CPT/HCPCS: 99212 ==

== ENCOUNTER → 2020-11-01 | Outpatient (CLI) | payer MEDICARE | LOC: WOUNDCARE 09:50 | PROVIDERS: ATTEND Surgery | DX: I89.0 Lymphedema, not elsewhere classified (principal); I87.323 Chronic venous hypertension (idiopathic) with inflammation of bilateral lower extremity; C34.90 Malignant neoplasm of unspecified part of unspecified bronchus or lung | CPT/HCPCS: 99212 ==

== ENCOUNTER → 2020-11-08 | Outpatient (CLI) | payer MEDICARE | LOC: WOUNDCARE 09:58 | PROVIDERS: ATTEND Surgery | DX: I89.0 Lymphedema, not elsewhere classified (principal); I87.333 Chronic venous hypertension (idiopathic) with ulcer and inflammation of bilateral lower extremity; C34.90 Malignant neoplasm of unspecified part of unspecified bronchus or lung | CPT/HCPCS: 99211 ==

== ENCOUNTER → 2020-11-15 | Outpatient (CLI) | payer MEDICARE ==
[~2020-11-15] MED LIST changes: +CATHETER FLUSH 10 ML SYR IV PRN; +HOLD METFORMIN - RECEIVED CONTRAST 20 ML VIAL IV SCH; +IOHEXOL 350 MG/ML 100 ML (OMNIPAQUE 350) VIAL IV ONE; +NS 100 ML (IVPB) BAG IV ONE
--- NOTE | 2020-11-15 10:59 | Diagnostic Imaging Report ---
EXAMINATION: CT Chest and Abdomen with intravenous contrast. TECHNIQUE: Multiple contiguous axial images were obtained through the chest and abdomen after the uneventful administration of intravenous contrast. All CT scans use one or more of the following dose optimizing techniques: automated exposure control, MA and/or KvP adjustment based on a patient size and exam type, or iterative reconstruction. HISTORY: PRIMARY ADENOCARCINOMA OF UPPER LOBE OF RIGHT LUNG COMPARISON: Outside CT 06/16/2020 FINDINGS: Thyroid: The thyroid is normal. Mediastinum: Heart size is normal without significant pericardial effusion. Calcifications of the aorta and coronary vessels. Thoracic aorta is normal in caliber. No suspicious lymphadenopathy. Left-sided Port-A-Cath is present. Lungs and airways: Background emphysematous changes in the lungs without pleural effusion or pneumothorax. Decreased size of the right upper lobe posterior masslike consolidation measuring 4.7 x 2.9 cm. Mass continues to invade the adjacent rib, vertebral body, and posterior elements. Stable partially calcified mass within the medial left lower lobe measuring up to 2.9 cm. No new suspicious pulmonary lesion. The airways are normal. Solid organs: The liver is normal without focal lesion. The gallbladder surgically absent. There is no biliary ductal dilation. Pancreas is normal. Spleen is normal. Adrenal glands are normal. There is nonobstructing left renal calculi measuring up to 0.5 cm. No hydronephrosis. Bowel: No bowel obstruction. Peritoneum: There is no intraperitoneal free fluid or free air. No suspicious lymphadenopathy. Vasculature: Calcification of the aorta without aneurysm. Musculoskeletal: Degenerative changes of the spine without suspicious osseous lesion or compression fracture. IMPRESSION: 1. Decreased size of the right upper lobe masslike consolidation. There continues to be invasion of adjacent rib and vertebral body. 2. Stable left lower lobe partially calcified lesion. 3. No new findings of metastatic disease. 4. COPD. 5. Renal calculi measuring up to 0.5 cm without hydronephrosis. Dictated by: Dictated on workstation # [id number]
== END ==
LOC: RAD 09:45
PROVIDERS: ATTEND Internal Medicine Hematology & Oncology
DX: J44.9 Chronic obstructive pulmonary disease, unspecified (principal); N20.0 Calculus of kidney; C34.11 Malignant neoplasm of upper lobe, right bronchus or lung; R91.1 Solitary pulmonary nodule
CPT/HCPCS: 71260; 74160

== ENCOUNTER 2021-01-24 13:22 | Outpatient (RCR) | payer MEDICARE ==
[2020-11-15 09:24] LABS: BASOPHILS % (AUTO) 1 % (0-10); EOSINOPHILS # (AUTO) 0.2 10^3/uL (0.0-0.3); EOSINOPHILS % (AUTO) 3 % (0-10); HEMATOCRIT 38 % (40-54); HEMOGLOBIN 11.7 g/dL (13.3-17.7); LYMPHOCYTES # (AUTO) 1.6 10^3/uL (1.0-4.0); LYMPHOCYTES % (AUTO) 26 % (12-44); MEAN CORPUSCULAR HEMOGLOBIN 27 pg (25-34); MEAN CORPUSCULAR HGB CONC 31 g/dL (32-36); MEAN CORPUSCULAR VOLUME 88 fL (80-99); MEAN PLATELET VOLUME 9.7 fL (9.0-12.2); MONOCYTES # (AUTO) 0.6 10^3/uL (0.0-1.0); MONOCYTES % (AUTO) 10 % (0-12); NEUTROPHILS # (AUTO) 3.6 10^3/uL (1.8-7.8); NEUTROPHILS % (AUTO) 60 % (42-75); PLATELET COUNT 168 10^3/uL (130-400); WHITE BLOOD COUNT 6.1 10^3/uL (4.3-11.0)
[2020-11-15 09:40] LABS: ALBUMIN 3.8 GM/DL (3.2-4.5); BILIRUBIN,TOTAL 0.5 MG/DL (0.1-1.0); CALCIUM 9.4 MG/DL (8.5-10.1); CREATININE SERUM 0.9 MG/DL (0.60-1.30); POTASSIUM 3.9 MMOL/L (3.6-5.0); TOTAL PROTEIN 8.2 GM/DL (6.4-8.2)
[2020-12-20 10:54] LABS: BASOPHILS # (AUTO) 0.1 10^3/uL (0.0-0.1); BASOPHILS % (AUTO) 1 % (0-10); EOSINOPHILS # (AUTO) 0.2 10^3/uL (0.0-0.3); EOSINOPHILS % (AUTO) 4 % (0-10); HEMATOCRIT 44 % (40-54); HEMOGLOBIN 13.1 g/dL (13.3-17.7); LYMPHOCYTES # (AUTO) 1.4 10^3/uL (1.0-4.0); LYMPHOCYTES % (AUTO) 24 % (12-44); MEAN CORPUSCULAR HEMOGLOBIN 27 pg (25-34); MEAN CORPUSCULAR HGB CONC 30 g/dL (32-36); MEAN CORPUSCULAR VOLUME 90 fL (80-99); MEAN PLATELET VOLUME 9.9 fL (9.0-12.2); MONOCYTES # (AUTO) 0.7 10^3/uL (0.0-1.0); MONOCYTES % (AUTO) 11 % (0-12); NEUTROPHILS # (AUTO) 3.6 10^3/uL (1.8-7.8); NEUTROPHILS % (AUTO) 60 % (42-75); PLATELET COUNT 194 10^3/uL (130-400)
[2020-12-20 11:21] LABS: ALBUMIN 3.8 GM/DL (3.2-4.5); BILIRUBIN,TOTAL 0.5 MG/DL (0.1-1.0); CALCIUM 9.5 MG/DL (8.5-10.1); CREATININE SERUM 0.98 MG/DL (0.60-1.30); POTASSIUM 4.2 MMOL/L (3.6-5.0); TOTAL PROTEIN 8.1 GM/DL (6.4-8.2)
[2021-01-03 13:49] LABS: BASOPHILS % (AUTO) 1 % (0-10); EOSINOPHILS # (AUTO) 0.2 10^3/uL (0.0-0.3); EOSINOPHILS % (AUTO) 4 % (0-10); HEMATOCRIT 42 % (40-54); HEMOGLOBIN 12.8 g/dL (13.3-17.7); LYMPHOCYTES # (AUTO) 1.1 10^3/uL (1.0-4.0); LYMPHOCYTES % (AUTO) 20 % (12-44); MEAN CORPUSCULAR HEMOGLOBIN 27 pg (25-34); MEAN CORPUSCULAR HGB CONC 31 g/dL (32-36); MEAN CORPUSCULAR VOLUME 89 fL (80-99); MEAN PLATELET VOLUME 10.1 fL (9.0-12.2); MONOCYTES # (AUTO) 0.7 10^3/uL (0.0-1.0); MONOCYTES % (AUTO) 12 % (0-12); NEUTROPHILS # (AUTO) 3.7 10^3/uL (1.8-7.8); NEUTROPHILS % (AUTO) 64 % (42-75); PLATELET COUNT 161 10^3/uL (130-400); WHITE BLOOD COUNT 5.7 10^3/uL (4.3-11.0)
[2021-01-03 14:26] LABS: ALBUMIN 3.7 GM/DL (3.2-4.5); BILIRUBIN,TOTAL 0.5 MG/DL (0.1-1.0); CALCIUM 9.1 MG/DL (8.5-10.1); CREATININE SERUM 0.88 MG/DL (0.60-1.30); POTASSIUM 4.1 MMOL/L (3.6-5.0); TOTAL PROTEIN 7.7 GM/DL (6.4-8.2)
[~2021-01-24 13:22] MED LIST changes: -CATHETER FLUSH 10 ML SYR IV PRN; -HOLD METFORMIN - RECEIVED CONTRAST 20 ML VIAL IV SCH; -IOHEXOL 350 MG/ML 100 ML (OMNIPAQUE 350) VIAL IV ONE; -NS 100 ML (IVPB) BAG IV ONE; +NS IV 1000 ML (CANCER CTR) IV SCH; +PEMBROLIZUMAB 200 MG in NS (IVPB) CANCER CENTER 50 ML IV SCH
[2021-01-24 13:41] LABS: BASOPHILS % (AUTO) 1 % (0-10); EOSINOPHILS # (AUTO) 0.2 10^3/uL (0.0-0.3); EOSINOPHILS % (AUTO) 4 % (0-10); HEMATOCRIT 42 % (40-54); HEMOGLOBIN 13.3 g/dL (13.3-17.7); LYMPHOCYTES # (AUTO) 1.3 10^3/uL (1.0-4.0); LYMPHOCYTES % (AUTO) 23 % (12-44); MEAN CORPUSCULAR HEMOGLOBIN 28 pg (25-34); MEAN CORPUSCULAR HGB CONC 32 g/dL (32-36); MEAN CORPUSCULAR VOLUME 88 fL (80-99); MEAN PLATELET VOLUME 10.6 fL (9.0-12.2); MONOCYTES # (AUTO) 0.6 10^3/uL (0.0-1.0); MONOCYTES % (AUTO) 11 % (0-12); NEUTROPHILS # (AUTO) 3.4 10^3/uL (1.8-7.8); NEUTROPHILS % (AUTO) 60 % (42-75); PLATELET COUNT 176 10^3/uL (130-400); WHITE BLOOD COUNT 5.7 10^3/uL (4.3-11.0)
[2021-01-24 14:06] LABS: ALBUMIN 3.8 GM/DL (3.2-4.5); BILIRUBIN,TOTAL 0.3 MG/DL (0.1-1.0); CALCIUM 8.9 MG/DL (8.5-10.1); CREATININE SERUM 0.95 MG/DL (0.60-1.30); POTASSIUM 4.2 MMOL/L (3.6-5.0); TOTAL PROTEIN 8.2 GM/DL (6.4-8.2)
== END 2021-02-13 | disposition home or self-care (01) ==
LOC: ONC 13:22
PROVIDERS: ATTEND Internal Medicine Hematology & Oncology
DX: Z51.11 Encounter for antineoplastic chemotherapy (principal); C34.11 Malignant neoplasm of upper lobe, right bronchus or lung; C79.51 Secondary malignant neoplasm of bone; J43.9 Emphysema, unspecified; E11.9 Type 2 diabetes mellitus without complications; I10 Essential (primary) hypertension; M25.511 Pain in right shoulder; D64.9 Anemia, unspecified; K22.70 Barrett's esophagus without dysplasia; L03.116 Cellulitis of left lower limb; L03.115 Cellulitis of right lower limb; Z87.891 Personal history of nicotine dependence; Z45.2 Encounter for adjustment and management of vascular access device
CPT/HCPCS: 36591; 80053; 82378; 84443; 85025; 96413; 99213

== ENCOUNTER → 2021-01-31 | Outpatient (CLI) | payer MEDICARE ==
[~2021-01-31] MED LIST changes: -NS IV 1000 ML (CANCER CTR) IV SCH; -PEMBROLIZUMAB 200 MG in NS (IVPB) CANCER CENTER 50 ML IV SCH
== END ==
LOC: CARD 11:30
PROVIDERS: ATTEND Internal Medicine Cardiovascular Disease
DX: I35.1 Nonrheumatic aortic (valve) insufficiency (principal); I10 Essential (primary) hypertension; I25.10 Atherosclerotic heart disease of native coronary artery without angina pectoris
CPT/HCPCS: 93306

== ENCOUNTER 2021-03-28 12:48 | Outpatient (RCR) | payer MEDICARE ==
[2021-02-15 15:29] LABS: BASOPHILS % (AUTO) 1 % (0-10); EOSINOPHILS # (AUTO) 0.2 10^3/uL (0.0-0.3); EOSINOPHILS % (AUTO) 3 % (0-10); HEMATOCRIT 41 % (40-54); HEMOGLOBIN 12.8 g/dL (13.3-17.7); LYMPHOCYTES # (AUTO) 1.3 10^3/uL (1.0-4.0); LYMPHOCYTES % (AUTO) 23 % (12-44); MEAN CORPUSCULAR HEMOGLOBIN 28 pg (25-34); MEAN CORPUSCULAR HGB CONC 31 g/dL (32-36); MEAN CORPUSCULAR VOLUME 88 fL (80-99); MEAN PLATELET VOLUME 10.1 fL (9.0-12.2); MONOCYTES # (AUTO) 0.6 10^3/uL (0.0-1.0); MONOCYTES % (AUTO) 11 % (0-12); NEUTROPHILS # (AUTO) 3.3 10^3/uL (1.8-7.8); NEUTROPHILS % (AUTO) 61 % (42-75); PLATELET COUNT 179 10^3/uL (130-400); WHITE BLOOD COUNT 5.5 10^3/uL (4.3-11.0)
[2021-02-15 15:45] LABS: ALBUMIN 3.9 GM/DL (3.2-4.5); BILIRUBIN,TOTAL 0.4 MG/DL (0.1-1.0); CALCIUM 8.9 MG/DL (8.5-10.1); CREATININE SERUM 1.14 MG/DL (0.60-1.30); TOTAL PROTEIN 8.1 GM/DL (6.4-8.2)
[2021-03-07 15:16] LABS: BASOPHILS # (AUTO) 0.1 10^3/uL (0.0-0.1); BASOPHILS % (AUTO) 1 % (0-10); EOSINOPHILS # (AUTO) 0.2 10^3/uL (0.0-0.3); EOSINOPHILS % (AUTO) 4 % (0-10); HEMATOCRIT 42 % (40-54); HEMOGLOBIN 13.3 g/dL (13.3-17.7); LYMPHOCYTES # (AUTO) 1.3 10^3/uL (1.0-4.0); LYMPHOCYTES % (AUTO) 20 % (12-44); MEAN CORPUSCULAR HEMOGLOBIN 28 pg (25-34); MEAN CORPUSCULAR HGB CONC 31 g/dL (32-36); MEAN CORPUSCULAR VOLUME 89 fL (80-99); MONOCYTES # (AUTO) 0.7 10^3/uL (0.0-1.0); MONOCYTES % (AUTO) 11 % (0-12); NEUTROPHILS # (AUTO) 4.1 10^3/uL (1.8-7.8); NEUTROPHILS % (AUTO) 63 % (42-75); PLATELET COUNT 177 10^3/uL (130-400); WHITE BLOOD COUNT 6.5 10^3/uL (4.3-11.0)
[2021-03-07 16:17] LABS: BILIRUBIN,TOTAL 0.4 MG/DL (0.1-1.0); CALCIUM 9.1 MG/DL (8.5-10.1); CREATININE SERUM 1.06 MG/DL (0.60-1.30); POTASSIUM 4.1 MMOL/L (3.6-5.0); TOTAL PROTEIN 8.1 GM/DL (6.4-8.2)
[~2021-03-28 12:48] MED LIST changes: -LISI-729 PO; +LISI5TAB20 PO; +NS IV 1000 ML (CANCER CTR) IV SCH; +PEMBROLIZUMAB 200 MG in NS (IVPB) CANCER CENTER 50 ML IV SCH
== END 2021-03-31 | disposition home or self-care (01) ==
LOC: ONC 12:48
PROVIDERS: ATTEND Internal Medicine Hematology & Oncology
DX: Z51.11 Encounter for antineoplastic chemotherapy (principal); C34.11 Malignant neoplasm of upper lobe, right bronchus or lung; C79.51 Secondary malignant neoplasm of bone; J43.9 Emphysema, unspecified; M25.511 Pain in right shoulder; E11.9 Type 2 diabetes mellitus without complications; I10 Essential (primary) hypertension; Z87.891 Personal history of nicotine dependence; Z79.84 Long term (current) use of oral hypoglycemic drugs; Z79.899 Other long term (current) drug therapy; Z99.81 Dependence on supplemental oxygen
CPT/HCPCS: 80053; 85025; 96413; G0463; 36591; 84443; 99213

== ENCOUNTER 2021-04-18 14:47 | Outpatient (RCR) | payer MEDICARE ==
[2021-04-18 15:15] LABS: BASOPHILS % (AUTO) 1 % (0-10); EOSINOPHILS # (AUTO) 0.2 10^3/uL (0.0-0.3); EOSINOPHILS % (AUTO) 3 % (0-10); HEMATOCRIT 43 % (40-54); HEMOGLOBIN 13.5 g/dL (13.3-17.7); LYMPHOCYTES # (AUTO) 1.2 10^3/uL (1.0-4.0); LYMPHOCYTES % (AUTO) 21 % (12-44); MEAN CORPUSCULAR HEMOGLOBIN 29 pg (25-34); MEAN CORPUSCULAR HGB CONC 32 g/dL (32-36); MEAN CORPUSCULAR VOLUME 90 fL (80-99); MEAN PLATELET VOLUME 10.8 fL (9.0-12.2); MONOCYTES # (AUTO) 0.6 10^3/uL (0.0-1.0); MONOCYTES % (AUTO) 10 % (0-12); NEUTROPHILS # (AUTO) 3.8 10^3/uL (1.8-7.8); NEUTROPHILS % (AUTO) 65 % (42-75); PLATELET COUNT 175 10^3/uL (130-400); WHITE BLOOD COUNT 5.9 10^3/uL (4.3-11.0)
[2021-04-18 15:34] LABS: BILIRUBIN,TOTAL 0.3 MG/DL (0.1-1.0); CALCIUM 9.3 MG/DL (8.5-10.1); CREATININE SERUM 1.19 MG/DL (0.60-1.30); POTASSIUM 4.3 MMOL/L (3.6-5.0); TOTAL PROTEIN 8.2 GM/DL (6.4-8.2)
== END 2021-05-01 | disposition home or self-care (01) ==
LOC: ONC 14:47
PROVIDERS: ATTEND Internal Medicine Hematology & Oncology
DX: C34.11 Malignant neoplasm of upper lobe, right bronchus or lung (principal); C79.51 Secondary malignant neoplasm of bone; J43.9 Emphysema, unspecified; M25.511 Pain in right shoulder; E11.9 Type 2 diabetes mellitus without complications; I10 Essential (primary) hypertension; Z87.891 Personal history of nicotine dependence; Z79.84 Long term (current) use of oral hypoglycemic drugs; Z79.899 Other long term (current) drug therapy; Z99.81 Dependence on supplemental oxygen
CPT/HCPCS: 80053; 85025; 96413; G0463

== ENCOUNTER 2021-05-10 10:19 | Outpatient (RCR) | payer MEDICARE ==
[2021-05-10 11:11] LABS: BASOPHILS % (AUTO) 1 % (0-10); EOSINOPHILS # (AUTO) 0.2 10^3/uL (0.0-0.3); EOSINOPHILS % (AUTO) 3 % (0-10); HEMATOCRIT 44 % (40-54); HEMOGLOBIN 13.9 g/dL (13.3-17.7); LYMPHOCYTES # (AUTO) 0.9 10^3/uL (1.0-4.0); LYMPHOCYTES % (AUTO) 19 % (12-44); MEAN CORPUSCULAR HEMOGLOBIN 29 pg (25-34); MEAN CORPUSCULAR HGB CONC 32 g/dL (32-36); MEAN CORPUSCULAR VOLUME 91 fL (80-99); MEAN PLATELET VOLUME 10.4 fL (9.0-12.2); MONOCYTES # (AUTO) 0.5 10^3/uL (0.0-1.0); MONOCYTES % (AUTO) 10 % (0-12); NEUTROPHILS # (AUTO) 3.3 10^3/uL (1.8-7.8); NEUTROPHILS % (AUTO) 66 % (42-75); PLATELET COUNT 170 10^3/uL (130-400)
[2021-05-10 11:27] LABS: BILIRUBIN,TOTAL 0.6 MG/DL (0.1-1.0); CALCIUM 8.8 MG/DL (8.5-10.1); CREATININE SERUM 1.1 MG/DL (0.60-1.30); TOTAL PROTEIN 8.1 GM/DL (6.4-8.2)
== END 2021-05-29 | disposition home or self-care (01) ==
LOC: ONC 10:19
PROVIDERS: ATTEND Internal Medicine Hematology & Oncology
DX: C34.11 Malignant neoplasm of upper lobe, right bronchus or lung (principal); C79.51 Secondary malignant neoplasm of bone; J43.9 Emphysema, unspecified; E11.9 Type 2 diabetes mellitus without complications; I10 Essential (primary) hypertension; M25.511 Pain in right shoulder; Z87.891 Personal history of nicotine dependence; Z79.84 Long term (current) use of oral hypoglycemic drugs; Z79.899 Other long term (current) drug therapy; Z99.81 Dependence on supplemental oxygen
CPT/HCPCS: 80053; 85025

== ENCOUNTER → 2021-05-17 | Outpatient (CLI) | payer MEDICARE ==
[~2021-05-17] MED LIST changes: +CATHETER FLUSH 10 ML SYR IV PRN; +HOLD METFORMIN - RECEIVED CONTRAST 20 ML VIAL IV SCH; +IOHEXOL 350 MG/ML 100 ML (OMNIPAQUE 350) VIAL IV ONE; +NS 100 ML (IVPB) BAG IV ONE; -NS IV 1000 ML (CANCER CTR) IV SCH; -PEMBROLIZUMAB 200 MG in NS (IVPB) CANCER CENTER 50 ML IV SCH
--- NOTE | 2021-05-17 12:16 | Diagnostic Imaging Report ---
PROCEDURE: CT chest, abdomen, and pelvis with contrast. TECHNIQUE: Multiple contiguous axial images were obtained through the chest, abdomen, and pelvis after the administration of intravenous contrast. Auto Exposure Controls were utilized during the CT exam to meet ALARA standards for radiation dose reduction. INDICATION: Lung cancer right upper lobe. Compared with CT chest, abdomen pelvis performed 11/15/2010. FINDINGS: Juxtapleural opacity in the apical portion of the right upper lobe posterior medially showed further interval reduction in size today measuring 2.6 x 1.4 cm previously 4.8 x 2.9 cm. There has been some bony remodeling and new bone formation associated with the previous destructive lesion of the right T2 pedicle and lamina as well as increased sclerosis associated with healing deformities to the adjacent right 3rd rib at the costovertebral junction. There has been no adverse interval development. A stable calcified nodule in the left lower lobe 2.9 cm unchanged features of COPD with paraseptal bullae and cyst formation superimposed stable and chronic. No pathological-appearing thoracic lymph nodes. No new lung mass. No findings suggestive of superimposed acute pneumonia. Small hiatal hernia chronic. There is a tiny pericardial effusion stable, 9 mm maximal thickness. Abdomen pelvis: There is progressive fatty infiltration of the liver but no liver mass or biliary ductal dilatation. The nonfocal pancreas is nonacute. Adrenal stable and negative. Spleen normal. Nonobstructing calculus within left lower pole calyces stable. No hydroureteronephrosis. No suspicious renal nodule. There is no abdominal pelvic, mesenteric or retroperitoneal lymphadenopathy. No suspicious abdominal pelvic lytic or sclerotic bone lesion. IMPRESSION: CHEST: Favorable changes, further regression of right upper lobe lung mass and improved adjacent chest wall destructive changes. No adverse development. Severe COPD background chronic partially calcified left lower lobe juxtapleural nodule unchanged. ABDOMEN PELVIS: Progressive hepatic steatosis. No findings of abdominal pelvic metastasis. Nonobstructing left renal calculus chronic. Dictated by: Dictated on workstation # [id number]
== END ==
LOC: RAD 09:45
PROVIDERS: ATTEND Internal Medicine Hematology & Oncology
DX: C34.11 Malignant neoplasm of upper lobe, right bronchus or lung (principal); J44.9 Chronic obstructive pulmonary disease, unspecified; K76.0 Fatty (change of) liver, not elsewhere classified; N20.0 Calculus of kidney
CPT/HCPCS: 71260; 74177

== ENCOUNTER 2021-06-23 12:50 | Outpatient (RCR) | payer MEDICARE ==
[2021-05-31 13:34] LABS: BASOPHILS % (AUTO) 1 % (0-10); EOSINOPHILS # (AUTO) 0.1 10^3/uL (0.0-0.3); EOSINOPHILS % (AUTO) 2 % (0-10); HEMATOCRIT 43 % (40-54); HEMOGLOBIN 13.8 g/dL (13.3-17.7); LYMPHOCYTES % (AUTO) 17 % (12-44); MEAN CORPUSCULAR HEMOGLOBIN 29 pg (25-34); MEAN CORPUSCULAR HGB CONC 32 g/dL (32-36); MEAN CORPUSCULAR VOLUME 90 fL (80-99); MONOCYTES # (AUTO) 0.6 10^3/uL (0.0-1.0); MONOCYTES % (AUTO) 10 % (0-12); NEUTROPHILS % (AUTO) 69 % (42-75); PLATELET COUNT 167 10^3/uL (130-400); WHITE BLOOD COUNT 5.8 10^3/uL (4.3-11.0)
[2021-05-31 13:50] LABS: ALBUMIN 4.2 GM/DL (3.2-4.5); BILIRUBIN,TOTAL 0.5 MG/DL (0.1-1.0); CALCIUM 9.4 MG/DL (8.5-10.1); CREATININE SERUM 1.1 MG/DL (0.60-1.30); POTASSIUM 4.2 MMOL/L (3.6-5.0); TOTAL PROTEIN 8.1 GM/DL (6.4-8.2)
[~2021-06-23 12:50] MED LIST changes: -CATHETER FLUSH 10 ML SYR IV PRN; -HOLD METFORMIN - RECEIVED CONTRAST 20 ML VIAL IV SCH; -IOHEXOL 350 MG/ML 100 ML (OMNIPAQUE 350) VIAL IV ONE; +NS (IVPB) CANCER CENTER 250 ML IV SCH; -NS 100 ML (IVPB) BAG IV ONE; +PEMBROLIZUMAB 200 MG in NS (IVPB) CANCER CENTER 50 ML IV SCH
[2021-06-23] MEDS ORDERED: ALTEPLASE 2 MG (CATHFLO) IV ONE (13:45)
[2021-06-23 13:48] LABS: BASOPHILS % (AUTO) 1 % (0-10); EOSINOPHILS # (AUTO) 0.2 10^3/uL (0.0-0.3); EOSINOPHILS % (AUTO) 3 % (0-10); HEMATOCRIT 44 % (40-54); HEMOGLOBIN 13.8 g/dL (13.3-17.7); LYMPHOCYTES # (AUTO) 1.1 10^3/uL (1.0-4.0); LYMPHOCYTES % (AUTO) 15 % (12-44); MEAN CORPUSCULAR HEMOGLOBIN 29 pg (25-34); MEAN CORPUSCULAR HGB CONC 31 g/dL (32-36); MEAN CORPUSCULAR VOLUME 91 fL (80-99); MEAN PLATELET VOLUME 10.4 fL (9.0-12.2); MONOCYTES # (AUTO) 0.7 10^3/uL (0.0-1.0); MONOCYTES % (AUTO) 9 % (0-12); NEUTROPHILS # (AUTO) 5.3 10^3/uL (1.8-7.8); NEUTROPHILS % (AUTO) 71 % (42-75); PLATELET COUNT 172 10^3/uL (130-400); WHITE BLOOD COUNT 7.4 10^3/uL (4.3-11.0)
[2021-06-23 14:07] LABS: BILIRUBIN,TOTAL 0.6 MG/DL (0.1-1.0); CALCIUM 9.4 MG/DL (8.5-10.1); CREATININE SERUM 1.03 MG/DL (0.60-1.30); POTASSIUM 4.7 MMOL/L (3.6-5.0); TOTAL PROTEIN 7.8 GM/DL (6.4-8.2)
== END 2021-06-29 | disposition home or self-care (01) ==
LOC: ONC 12:50
PROVIDERS: ATTEND Internal Medicine Hematology & Oncology
DX: C34.11 Malignant neoplasm of upper lobe, right bronchus or lung (principal); C79.51 Secondary malignant neoplasm of bone; J43.9 Emphysema, unspecified; E11.9 Type 2 diabetes mellitus without complications; I10 Essential (primary) hypertension; K76.0 Fatty (change of) liver, not elsewhere classified; Z87.891 Personal history of nicotine dependence; Z79.84 Long term (current) use of oral hypoglycemic drugs; Z79.899 Other long term (current) drug therapy; Z99.81 Dependence on supplemental oxygen
CPT/HCPCS: 80053; 84443; 85025; 99213

== ENCOUNTER 2021-07-13 13:10 | Outpatient (RCR) | payer MEDICARE ==
[~2021-07-13 13:10] MED LIST changes: +HEParin (CENTRAL IV FLUSH) 500 UNIT/5 ML SYR IV PRN; +NS (IVPB) 250 ML IV SCH; -NS (IVPB) CANCER CENTER 250 ML IV SCH; +PEMBROLIZUMAB 200 MG in NS (IVPB) 50 ML IV SCH; -PEMBROLIZUMAB 200 MG in NS (IVPB) CANCER CENTER 50 ML IV SCH
[2021-07-13 13:55] LABS: BASOPHILS % (AUTO) 1 % (0-10); EOSINOPHILS # (AUTO) 0.2 10^3/uL (0.0-0.3); EOSINOPHILS % (AUTO) 3 % (0-10); HEMATOCRIT 41 % (40-54); HEMOGLOBIN 13.1 g/dL (13.3-17.7); LYMPHOCYTES # (AUTO) 1.1 10^3/uL (1.0-4.0); LYMPHOCYTES % (AUTO) 17 % (12-44); MEAN CORPUSCULAR HEMOGLOBIN 29 pg (25-34); MEAN CORPUSCULAR HGB CONC 32 g/dL (32-36); MEAN CORPUSCULAR VOLUME 91 fL (80-99); MEAN PLATELET VOLUME 10.3 fL (9.0-12.2); MONOCYTES # (AUTO) 0.6 10^3/uL (0.0-1.0); MONOCYTES % (AUTO) 10 % (0-12); NEUTROPHILS # (AUTO) 4.3 10^3/uL (1.8-7.8); NEUTROPHILS % (AUTO) 69 % (42-75); PLATELET COUNT 168 10^3/uL (130-400); WHITE BLOOD COUNT 6.2 10^3/uL (4.3-11.0)
[2021-07-13 14:12] LABS: BILIRUBIN,TOTAL 0.4 MG/DL (0.1-1.0); CALCIUM 8.9 MG/DL (8.5-10.1); CREATININE SERUM 1.08 MG/DL (0.60-1.30); POTASSIUM 4.2 MMOL/L (3.6-5.0); TOTAL PROTEIN 7.7 GM/DL (6.4-8.2)
== END 2021-07-29 | disposition home or self-care (01) ==
LOC: ONC 13:10
PROVIDERS: ATTEND Internal Medicine Hematology & Oncology
DX: Z51.11 Encounter for antineoplastic chemotherapy (principal); Z45.2 Encounter for adjustment and management of vascular access device; C34.11 Malignant neoplasm of upper lobe, right bronchus or lung; C79.51 Secondary malignant neoplasm of bone; J43.9 Emphysema, unspecified; E11.9 Type 2 diabetes mellitus without complications; I10 Essential (primary) hypertension; K76.0 Fatty (change of) liver, not elsewhere classified; Z87.891 Personal history of nicotine dependence; Z79.84 Long term (current) use of oral hypoglycemic drugs; Z79.899 Other long term (current) drug therapy; Z99.81 Dependence on supplemental oxygen
CPT/HCPCS: 80053; 85025; 96360; 96413; G0463; 36591; 99213

== ENCOUNTER 2021-08-24 13:14 | Outpatient (RCR) | payer MEDICARE ==
[2021-08-03 13:45] LABS: BASOPHILS % (AUTO) 1 % (0-10); EOSINOPHILS # (AUTO) 0.2 10^3/uL (0.0-0.3); EOSINOPHILS % (AUTO) 4 % (0-10); HEMATOCRIT 43 % (40-54); HEMOGLOBIN 13.5 g/dL (13.3-17.7); LYMPHOCYTES # (AUTO) 1.3 10^3/uL (1.0-4.0); LYMPHOCYTES % (AUTO) 21 % (12-44); MEAN CORPUSCULAR HEMOGLOBIN 29 pg (25-34); MEAN CORPUSCULAR HGB CONC 32 g/dL (32-36); MEAN CORPUSCULAR VOLUME 91 fL (80-99); MONOCYTES # (AUTO) 0.7 10^3/uL (0.0-1.0); MONOCYTES % (AUTO) 11 % (0-12); NEUTROPHILS # (AUTO) 3.7 10^3/uL (1.8-7.8); NEUTROPHILS % (AUTO) 62 % (42-75); PLATELET COUNT 190 10^3/uL (130-400)
[2021-08-03 14:04] LABS: BILIRUBIN,TOTAL 0.5 MG/DL (0.1-1.0); CALCIUM 8.9 MG/DL (8.5-10.1); CREATININE SERUM 1.07 MG/DL (0.60-1.30); POTASSIUM 4.2 MMOL/L (3.6-5.0); TOTAL PROTEIN 7.8 GM/DL (6.4-8.2)
[2021-08-24 13:44] LABS: BASOPHILS % (AUTO) 1 % (0-10); EOSINOPHILS # (AUTO) 0.2 10^3/uL (0.0-0.3); EOSINOPHILS % (AUTO) 3 % (0-10); HEMATOCRIT 42 % (40-54); HEMOGLOBIN 13.7 g/dL (13.3-17.7); LYMPHOCYTES % (AUTO) 18 % (12-44); MEAN CORPUSCULAR HEMOGLOBIN 29 pg (25-34); MEAN CORPUSCULAR HGB CONC 33 g/dL (32-36); MEAN CORPUSCULAR VOLUME 89 fL (80-99); MEAN PLATELET VOLUME 10.4 fL (9.0-12.2); MONOCYTES # (AUTO) 0.5 10^3/uL (0.0-1.0); MONOCYTES % (AUTO) 9 % (0-12); NEUTROPHILS # (AUTO) 3.8 10^3/uL (1.8-7.8); NEUTROPHILS % (AUTO) 67 % (42-75); PLATELET COUNT 170 10^3/uL (130-400); WHITE BLOOD COUNT 5.7 10^3/uL (4.3-11.0)
[2021-08-24 13:57] LABS: ALBUMIN 3.7 GM/DL (3.2-4.5); POTASSIUM 3.8 MMOL/L (3.6-5.0)
[2021-08-24 13:58] LABS: CALCIUM 8.6 MG/DL (8.5-10.1)
[2021-08-24 13:59] LABS: TOTAL PROTEIN 7.1 GM/DL (6.4-8.2)
[2021-08-24 14:01] LABS: BILIRUBIN,TOTAL 0.5 MG/DL (0.1-1.0)
[2021-08-24 14:03] LABS: CREATININE SERUM 0.95 MG/DL (0.60-1.30)
== END 2021-08-29 | disposition home or self-care (01) ==
LOC: ONC 13:14
PROVIDERS: ATTEND Internal Medicine Hematology & Oncology
DX: Z51.11 Encounter for antineoplastic chemotherapy (principal); C34.11 Malignant neoplasm of upper lobe, right bronchus or lung; Z45.2 Encounter for adjustment and management of vascular access device; I10 Essential (primary) hypertension; E78.5 Hyperlipidemia, unspecified; I25.10 Atherosclerotic heart disease of native coronary artery without angina pectoris
CPT/HCPCS: 80053; 84443; 85025; 96413; G0463; 36591; 99213

== ENCOUNTER 2021-09-13 10:48 | Outpatient (RCR) | payer MEDICARE ==
[2021-09-13 11:11] LABS: BASOPHILS # (AUTO) 0.1 10^3/uL (0.0-0.1); BASOPHILS % (AUTO) 1 % (0-10); EOSINOPHILS # (AUTO) 0.2 10^3/uL (0.0-0.3); EOSINOPHILS % (AUTO) 4 % (0-10); HEMATOCRIT 41 % (40-54); HEMOGLOBIN 13.1 g/dL (13.3-17.7); LYMPHOCYTES % (AUTO) 19 % (12-44); MEAN CORPUSCULAR HEMOGLOBIN 29 pg (25-34); MEAN CORPUSCULAR HGB CONC 32 g/dL (32-36); MEAN CORPUSCULAR VOLUME 90 fL (80-99); MONOCYTES # (AUTO) 0.6 10^3/uL (0.0-1.0); MONOCYTES % (AUTO) 12 % (0-12); NEUTROPHILS # (AUTO) 3.2 10^3/uL (1.8-7.8); NEUTROPHILS % (AUTO) 63 % (42-75); PLATELET COUNT 161 10^3/uL (130-400); WHITE BLOOD COUNT 5.1 10^3/uL (4.3-11.0)
[2021-09-13 11:35] LABS: ALBUMIN 3.9 GM/DL (3.2-4.5); BILIRUBIN,TOTAL 0.7 MG/DL (0.1-1.0); CALCIUM 8.8 MG/DL (8.5-10.1); CREATININE SERUM 1.2 MG/DL (0.60-1.30); POTASSIUM 4.3 MMOL/L (3.6-5.0); TOTAL PROTEIN 7.5 GM/DL (6.4-8.2)
== END 2021-09-28 | disposition home or self-care (01) ==
LOC: ONC 10:48
PROVIDERS: ATTEND Internal Medicine Hematology & Oncology
DX: Z51.11 Encounter for antineoplastic chemotherapy (principal); Z45.2 Encounter for adjustment and management of vascular access device; C34.11 Malignant neoplasm of upper lobe, right bronchus or lung; C79.51 Secondary malignant neoplasm of bone; I10 Essential (primary) hypertension; E11.9 Type 2 diabetes mellitus without complications; J43.9 Emphysema, unspecified
CPT/HCPCS: 36591; 80053; 85025; 96413

== ENCOUNTER → 2021-10-11 | Outpatient (CLI) | payer MEDICARE ==
[~2021-10-11] MED LIST changes: +CATHETER FLUSH 10 ML SYR IV PRN; -HEParin (CENTRAL IV FLUSH) 500 UNIT/5 ML SYR IV PRN; +HOLD METFORMIN - RECEIVED CONTRAST 20 ML VIAL IV SCH; +IOHEXOL 350 MG/ML 100 ML (OMNIPAQUE 350) VIAL IV ONE; -NS (IVPB) 250 ML IV SCH; +NS 100 ML (IVPB) BAG IV ONE; -PEMBROLIZUMAB 200 MG in NS (IVPB) 50 ML IV SCH
--- NOTE | 2021-10-11 16:27 | Diagnostic Imaging Report ---
EXAMINATION: CT chest, abdomen and pelvis with and without contrast. TECHNIQUE: Precontrast images were obtained of the chest, abdomen, and pelvis. Multiple contiguous axial images were obtained through the chest, abdomen, and pelvis after administration of intravenous contrast. Auto Exposure Controls were utilized during the CT exam to meet ALARA standards for radiation dose reduction. HISTORY: Lung cancer follow-up. COMPARISON: 05/07/2021. FINDINGS: Thyroid: The thyroid is normal. Mediastinum: Heart size is normal without significant pericardial effusion. Calcifications of the aorta and coronary vessels. Thoracic aorta is normal in caliber. No suspicious lymphadenopathy. A left-sided portacatheter is partially visualized. Lungs and airways: There are background emphysematous changes of the lungs without consolidation, pleural effusion or pneumothorax. There is a partially calcified lesion within the medial left lower lobe measuring up to 3.0 cm. This is unchanged from prior exam. No new suspicious pulmonary lesion. Post treatment changes of the right upper lobe, unchanged from prior exam. The airways are normal. Solid organs: There is diffuse hypoattenuation of the liver compatible with hepatic steatosis. No focal hepatic lesion. There is no biliary ductal dilation. Gallbladder is surgically absent. Pancreas is normal. Spleen is normal. Adrenal glands are normal. There is a nonobstructing left renal calculus measuring up to 0.4 cm. No hydronephrosis. Bowel: There is no bowel obstruction. The colon and appendix are unremarkable. Peritoneum: There is no intraperitoneal free fluid or free air. No suspicious lymphadenopathy. Vasculature: Calcification of the aorta without aneurysm. Musculoskeletal: Degenerative changes of the spine without suspicious osseous lesion or compression fracture. There is a small fat-containing periumbilical hernia. Pelvis: The prostate gland is normal. The urinary bladder is normal. IMPRESSION: 1. Stable post treatment changes of the right upper lobe without evidence of residual, recurrent or metastatic disease. 2. COPD. 3. Hepatic steatosis. Dictated by: Dictated on workstation # [id number]
== END ==
LOC: RAD 09:42
PROVIDERS: ATTEND Internal Medicine Hematology & Oncology
DX: J44.9 Chronic obstructive pulmonary disease, unspecified (principal); K76.0 Fatty (change of) liver, not elsewhere classified; Z85.118 Personal history of other malignant neoplasm of bronchus and lung
CPT/HCPCS: 71260; 74178

== ENCOUNTER 2021-10-19 10:39 | Outpatient (RCR) | payer MEDICARE ==
[~2021-10-19 10:39] MED LIST changes: -CATHETER FLUSH 10 ML SYR IV PRN; +HEParin (CENTRAL IV FLUSH) 500 UNIT/5 ML SYR IV PRN; -HOLD METFORMIN - RECEIVED CONTRAST 20 ML VIAL IV SCH; -IOHEXOL 350 MG/ML 100 ML (OMNIPAQUE 350) VIAL IV ONE; +NS (IVPB) 250 ML IV SCH; -NS 100 ML (IVPB) BAG IV ONE; +PEMBROLIZUMAB 200 MG in NS (IVPB) 50 ML IV SCH
[2021-10-19 11:15] LABS: BASOPHILS % (AUTO) 1 % (0-10); EOSINOPHILS # (AUTO) 0.2 10^3/uL (0.0-0.3); EOSINOPHILS % (AUTO) 3 % (0-10); HEMATOCRIT 40 % (40-54); HEMOGLOBIN 12.8 g/dL (13.3-17.7); LYMPHOCYTES # (AUTO) 1.2 10^3/uL (1.0-4.0); LYMPHOCYTES % (AUTO) 20 % (12-44); MEAN CORPUSCULAR HEMOGLOBIN 29 pg (25-34); MEAN CORPUSCULAR HGB CONC 32 g/dL (32-36); MEAN CORPUSCULAR VOLUME 89 fL (80-99); MEAN PLATELET VOLUME 10.3 fL (9.0-12.2); MONOCYTES # (AUTO) 0.7 10^3/uL (0.0-1.0); MONOCYTES % (AUTO) 12 % (0-12); NEUTROPHILS # (AUTO) 3.7 10^3/uL (1.8-7.8); NEUTROPHILS % (AUTO) 63 % (42-75); PLATELET COUNT 171 10^3/uL (130-400); WHITE BLOOD COUNT 5.9 10^3/uL (4.3-11.0)
[2021-10-19 11:39] LABS: BILIRUBIN,TOTAL 0.5 MG/DL (0.1-1.0); CALCIUM 9.1 MG/DL (8.5-10.1); CREATININE SERUM 1.21 MG/DL (0.60-1.30); POTASSIUM 4.4 MMOL/L (3.6-5.0); TOTAL PROTEIN 7.7 GM/DL (6.4-8.2)
== END 2021-10-29 | disposition home or self-care (01) ==
LOC: ONC 10:39
PROVIDERS: ATTEND Internal Medicine Hematology & Oncology
DX: Z51.11 Encounter for antineoplastic chemotherapy (principal); C34.11 Malignant neoplasm of upper lobe, right bronchus or lung; C79.51 Secondary malignant neoplasm of bone; I10 Essential (primary) hypertension; E11.9 Type 2 diabetes mellitus without complications; J43.9 Emphysema, unspecified; Z87.891 Personal history of nicotine dependence; Z92.21 Personal history of antineoplastic chemotherapy; Z92.3 Personal history of irradiation
CPT/HCPCS: 36415; 36591; 80053; 85025; 96413; 99213

== ENCOUNTER 2021-11-09 08:41 | Outpatient (RCR) | payer MEDICARE ==
[2021-11-09] MEDS ORDERED: ALTEPLASE 2 MG (CATHFLO) IV ONE (09:30)
[2021-11-09 10:11] LABS: BASOPHILS # (AUTO) 0.1 10^3/uL (0.0-0.1); BASOPHILS % (AUTO) 1 % (0-10); EOSINOPHILS # (AUTO) 0.2 10^3/uL (0.0-0.3); EOSINOPHILS % (AUTO) 3 % (0-10); HEMATOCRIT 40 % (40-54); HEMOGLOBIN 13.1 g/dL (13.3-17.7); LYMPHOCYTES # (AUTO) 1.2 10^3/uL (1.0-4.0); LYMPHOCYTES % (AUTO) 18 % (12-44); MEAN CORPUSCULAR HEMOGLOBIN 29 pg (25-34); MEAN CORPUSCULAR HGB CONC 33 g/dL (32-36); MEAN CORPUSCULAR VOLUME 89 fL (80-99); MEAN PLATELET VOLUME 10.4 fL (9.0-12.2); MONOCYTES # (AUTO) 0.9 10^3/uL (0.0-1.0); MONOCYTES % (AUTO) 12 % (0-12); NEUTROPHILS # (AUTO) 4.5 10^3/uL (1.8-7.8); NEUTROPHILS % (AUTO) 64 % (42-75); PLATELET COUNT 157 10^3/uL (130-400)
[2021-11-09 10:35] LABS: BILIRUBIN,TOTAL 0.5 MG/DL (0.1-1.0); CREATININE SERUM 1.15 MG/DL (0.60-1.30); POTASSIUM 4.1 MMOL/L (3.6-5.0); TOTAL PROTEIN 7.5 GM/DL (6.4-8.2)
== END 2021-11-29 14:01 | disposition home or self-care (01) ==
LOC: ONC 08:41
PROVIDERS: ATTEND Internal Medicine Hematology & Oncology
DX: Z51.11 Encounter for antineoplastic chemotherapy (principal); Z45.2 Encounter for adjustment and management of vascular access device; C34.11 Malignant neoplasm of upper lobe, right bronchus or lung; C79.51 Secondary malignant neoplasm of bone; I10 Essential (primary) hypertension; E11.9 Type 2 diabetes mellitus without complications; J43.9 Emphysema, unspecified; Z87.891 Personal history of nicotine dependence; Z92.21 Personal history of antineoplastic chemotherapy; Z92.3 Personal history of irradiation
CPT/HCPCS: 36593; 80053; 85025; 96413; G0463; 36591

== ENCOUNTER 2021-12-21 12:42 | Outpatient (RCR) | payer MEDICARE ==
[2021-11-30 13:44] LABS: BASOPHILS # (AUTO) 0.1 10^3/uL (0.0-0.1); BASOPHILS % (AUTO) 1 % (0-10); EOSINOPHILS # (AUTO) 0.4 10^3/uL (0.0-0.3); EOSINOPHILS % (AUTO) 5 % (0-10); HEMATOCRIT 40 % (40-54); HEMOGLOBIN 13.1 g/dL (13.3-17.7); LYMPHOCYTES # (AUTO) 1.2 10^3/uL (1.0-4.0); LYMPHOCYTES % (AUTO) 17 % (12-44); MEAN CORPUSCULAR HEMOGLOBIN 29 pg (25-34); MEAN CORPUSCULAR HGB CONC 32 g/dL (32-36); MEAN CORPUSCULAR VOLUME 90 fL (80-99); MEAN PLATELET VOLUME 10.1 fL (9.0-12.2); MONOCYTES # (AUTO) 0.7 10^3/uL (0.0-1.0); MONOCYTES % (AUTO) 10 % (0-12); NEUTROPHILS # (AUTO) 4.6 10^3/uL (1.8-7.8); NEUTROPHILS % (AUTO) 67 % (42-75); PLATELET COUNT 160 10^3/uL (130-400); WHITE BLOOD COUNT 6.9 10^3/uL (4.3-11.0)
[2021-11-30 14:09] LABS: ALBUMIN 4.1 GM/DL (3.2-4.5); BILIRUBIN,TOTAL 0.6 MG/DL (0.1-1.0); CREATININE SERUM 1.14 MG/DL (0.60-1.30); POTASSIUM 4.3 MMOL/L (3.6-5.0); TOTAL PROTEIN 7.8 GM/DL (6.4-8.2)
[2021-12-21 13:35] LABS: BASOPHILS # (AUTO) 0.1 10^3/uL (0.0-0.1); BASOPHILS % (AUTO) 1 % (0-10); EOSINOPHILS # (AUTO) 0.5 10^3/uL (0.0-0.3); EOSINOPHILS % (AUTO) 7 % (0-10); HEMATOCRIT 40 % (40-54); HEMOGLOBIN 13.1 g/dL (13.3-17.7); LYMPHOCYTES # (AUTO) 1.4 10^3/uL (1.0-4.0); LYMPHOCYTES % (AUTO) 19 % (12-44); MEAN CORPUSCULAR HEMOGLOBIN 29 pg (25-34); MEAN CORPUSCULAR HGB CONC 33 g/dL (32-36); MEAN CORPUSCULAR VOLUME 89 fL (80-99); MEAN PLATELET VOLUME 10.2 fL (9.0-12.2); MONOCYTES # (AUTO) 0.7 10^3/uL (0.0-1.0); MONOCYTES % (AUTO) 10 % (0-12); NEUTROPHILS # (AUTO) 4.4 10^3/uL (1.8-7.8); NEUTROPHILS % (AUTO) 62 % (42-75); PLATELET COUNT 169 10^3/uL (130-400); WHITE BLOOD COUNT 7.1 10^3/uL (4.3-11.0)
[2021-12-21 13:55] LABS: ALBUMIN 4.1 GM/DL (3.2-4.5); BILIRUBIN,TOTAL 0.5 MG/DL (0.1-1.0); CALCIUM 9.5 MG/DL (8.5-10.1); CREATININE SERUM 1.08 MG/DL (0.60-1.30); POTASSIUM 4.2 MMOL/L (3.6-5.0); TOTAL PROTEIN 7.8 GM/DL (6.4-8.2)
== END 2021-12-29 | disposition home or self-care (01) ==
LOC: ONC 12:42
PROVIDERS: ATTEND Internal Medicine Hematology & Oncology
DX: Z51.11 Encounter for antineoplastic chemotherapy (principal); Z45.2 Encounter for adjustment and management of vascular access device; C34.11 Malignant neoplasm of upper lobe, right bronchus or lung; C79.51 Secondary malignant neoplasm of bone; J44.9 Chronic obstructive pulmonary disease, unspecified; K76.0 Fatty (change of) liver, not elsewhere classified; I10 Essential (primary) hypertension; E11.9 Type 2 diabetes mellitus without complications; Z87.891 Personal history of nicotine dependence; Z92.3 Personal history of irradiation
CPT/HCPCS: 80053; 85025; 96413; G0463; 36591

== ENCOUNTER 2022-01-10 12:45 | Outpatient (RCR) | payer MEDICARE ==
[2022-01-10 13:18] LABS: BASOPHILS # (AUTO) 0.1 10^3/uL (0.0-0.1); BASOPHILS % (AUTO) 1 % (0-10); EOSINOPHILS # (AUTO) 0.5 10^3/uL (0.0-0.3); EOSINOPHILS % (AUTO) 8 % (0-10); HEMATOCRIT 39 % (40-54); HEMOGLOBIN 12.5 g/dL (13.3-17.7); LYMPHOCYTES # (AUTO) 1.2 10^3/uL (1.0-4.0); LYMPHOCYTES % (AUTO) 20 % (12-44); MEAN CORPUSCULAR HEMOGLOBIN 29 pg (25-34); MEAN CORPUSCULAR HGB CONC 32 g/dL (32-36); MEAN CORPUSCULAR VOLUME 89 fL (80-99); MEAN PLATELET VOLUME 10.1 fL (9.0-12.2); MONOCYTES # (AUTO) 0.6 10^3/uL (0.0-1.0); MONOCYTES % (AUTO) 10 % (0-12); NEUTROPHILS # (AUTO) 3.8 10^3/uL (1.8-7.8); NEUTROPHILS % (AUTO) 60 % (42-75); PLATELET COUNT 163 10^3/uL (130-400); WHITE BLOOD COUNT 6.3 10^3/uL (4.3-11.0)
[2022-01-10 13:36] LABS: ALBUMIN 3.9 GM/DL (3.2-4.5); BILIRUBIN,TOTAL 0.5 MG/DL (0.1-1.0); CALCIUM 9.4 MG/DL (8.5-10.1); CREATININE SERUM 1.16 MG/DL (0.60-1.30); POTASSIUM 4.2 MMOL/L (3.6-5.0); TOTAL PROTEIN 7.4 GM/DL (6.4-8.2)
== END 2022-01-29 | disposition home or self-care (01) ==
LOC: ONC 12:45
PROVIDERS: ATTEND Internal Medicine Hematology & Oncology
DX: Z51.11 Encounter for antineoplastic chemotherapy (principal); Z45.2 Encounter for adjustment and management of vascular access device; C34.11 Malignant neoplasm of upper lobe, right bronchus or lung; C79.51 Secondary malignant neoplasm of bone; J44.9 Chronic obstructive pulmonary disease, unspecified; K76.0 Fatty (change of) liver, not elsewhere classified; I10 Essential (primary) hypertension; E11.9 Type 2 diabetes mellitus without complications; Z87.891 Personal history of nicotine dependence; Z92.3 Personal history of irradiation
CPT/HCPCS: 36591; 80053; 85025; 96413

== ENCOUNTER 2022-02-21 13:10 | Outpatient (RCR) | payer MEDICARE ==
[2022-02-01 13:47] LABS: BASOPHILS % (AUTO) 1 % (0-10); EOSINOPHILS # (AUTO) 0.2 10^3/uL (0.0-0.3); EOSINOPHILS % (AUTO) 5 % (0-10); HEMATOCRIT 29 % (40-54); HEMOGLOBIN 9.3 g/dL (13.3-17.7); LYMPHOCYTES # (AUTO) 0.9 10^3/uL (1.0-4.0); LYMPHOCYTES % (AUTO) 21 % (12-44); MEAN CORPUSCULAR HEMOGLOBIN 30 pg (25-34); MEAN CORPUSCULAR HGB CONC 32 g/dL (32-36); MEAN CORPUSCULAR VOLUME 92 fL (80-99); MEAN PLATELET VOLUME 12.1 fL (9.0-12.2); MONOCYTES # (AUTO) 0.5 10^3/uL (0.0-1.0); MONOCYTES % (AUTO) 11 % (0-12); NEUTROPHILS # (AUTO) 2.6 10^3/uL (1.8-7.8); NEUTROPHILS % (AUTO) 61 % (42-75); PLATELET COUNT 138 10^3/uL (130-400); WHITE BLOOD COUNT 4.2 10^3/uL (4.3-11.0)
[2022-02-01 14:37] LABS: ALBUMIN 3.9 GM/DL (3.2-4.5); BILIRUBIN,TOTAL 0.4 MG/DL (0.1-1.0); CALCIUM 9.2 MG/DL (8.5-10.1); CREATININE SERUM 0.99 MG/DL (0.60-1.30); POTASSIUM 4.1 MMOL/L (3.6-5.0); TOTAL PROTEIN 7.4 GM/DL (6.4-8.2)
[2022-02-21 13:44] LABS: BASOPHILS # (AUTO) 0.1 10^3/uL (0.0-0.1); BASOPHILS % (AUTO) 1 % (0-10); EOSINOPHILS # (AUTO) 1.3 10^3/uL (0.0-0.3); EOSINOPHILS % (AUTO) 17 % (0-10); HEMATOCRIT 39 % (40-54); HEMOGLOBIN 12.7 g/dL (13.3-17.7); LYMPHOCYTES # (AUTO) 1.7 10^3/uL (1.0-4.0); LYMPHOCYTES % (AUTO) 22 % (12-44); MEAN CORPUSCULAR HEMOGLOBIN 29 pg (25-34); MEAN CORPUSCULAR HGB CONC 33 g/dL (32-36); MEAN CORPUSCULAR VOLUME 90 fL (80-99); MEAN PLATELET VOLUME 10.4 fL (9.0-12.2); MONOCYTES # (AUTO) 0.6 10^3/uL (0.0-1.0); MONOCYTES % (AUTO) 8 % (0-12); NEUTROPHILS # (AUTO) 4.1 10^3/uL (1.8-7.8); NEUTROPHILS % (AUTO) 52 % (42-75); PLATELET COUNT 178 10^3/uL (130-400); WHITE BLOOD COUNT 7.8 10^3/uL (4.3-11.0)
[2022-02-21 14:20] LABS: ALBUMIN 3.8 GM/DL (3.2-4.5); BILIRUBIN,TOTAL 0.4 MG/DL (0.1-1.0); CREATININE SERUM 1.2 MG/DL (0.60-1.30); TOTAL PROTEIN 7.5 GM/DL (6.4-8.2)
== END 2022-02-28 | disposition home or self-care (01) ==
LOC: ONC 13:10
PROVIDERS: ATTEND Internal Medicine Hematology & Oncology
DX: Z51.11 Encounter for antineoplastic chemotherapy (principal); Z45.2 Encounter for adjustment and management of vascular access device; C34.11 Malignant neoplasm of upper lobe, right bronchus or lung; C79.51 Secondary malignant neoplasm of bone; J44.9 Chronic obstructive pulmonary disease, unspecified; K76.0 Fatty (change of) liver, not elsewhere classified; I10 Essential (primary) hypertension; E11.9 Type 2 diabetes mellitus without complications; Z87.891 Personal history of nicotine dependence; Z92.3 Personal history of irradiation
CPT/HCPCS: 80053; 85025; 96413; G0463; 36591

== ENCOUNTER → 2022-03-05 | Outpatient (CLI) | payer MEDICARE ==
[~2022-03-05] MED LIST changes: +CATHETER FLUSH 10 ML SYR IV PRN; -HEParin (CENTRAL IV FLUSH) 500 UNIT/5 ML SYR IV PRN; +HOLD METFORMIN - RECEIVED CONTRAST 20 ML VIAL IV SCH; +IOHEXOL 350 MG/ML 100 ML (OMNIPAQUE 350) VIAL IV ONE; -NS (IVPB) 250 ML IV SCH; +NS 100 ML (IVPB) BAG IV ONE; -PEMBROLIZUMAB 200 MG in NS (IVPB) 50 ML IV SCH
--- NOTE | 2022-03-05 16:59 | Diagnostic Imaging Report ---
PROCEDURE: CT chest and abdomen with contrast. TECHNIQUE: Multiple contiguous axial images were obtained through the chest and abdomen after the administration of intravenous contrast. Auto Exposure Controls were utilized during the CT exam to meet ALARA standards for radiation dose reduction. INDICATION: Lung cancer on immunotherapy as well as a completing radiation treatment. COMPARISON with studies of 10/11/2021. CHEST: Paraseptal and fibroemphysematous lung disease involves upper greater than lower lobes as a background stable chronic finding. Some medial right apical pleural-parenchymal scarring and fibrosis stable. A left lower lobe mass juxtapleural is posterior to the descending thoracic aorta with some curvilinear internal calcifications measuring 3.3 x 2.2 cm in maximal axial dimensions. This unchanged when measured along the same axis on the prior. No enlarged distorted or suspicious axillary, hilar or mediastinal lymph nodes. No new lung mass. No findings of acute pneumonia. Aorta is nonaneurysmal. There is a small hiatal hernia, chronic. No chest effusion. No soft tissue or osseous chest wall lesion. ABDOMEN PELVIS: The adrenals negative. There is no liver mass. Spleen and pancreas unremarkable. Gallbladder surgically absent. The kidneys unobstructed with stable left lower pole renal calculus. There is no abdominal mesenteric nor retroperitoneal lymphadenopathy. Supraumbilical fatty ventral abdominal wall hernia stable. No abdominal ascites, no omental infiltration. Aortoiliac atherosclerotic vascular calcifications nonaneurysmal. 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 No thoracic adenopathy. No new lung mass. ABDOMEN: No findings to suggest abdominal involvement by metastatic disease. Dictated on workstation # [id number]
== END ==
LOC: RAD 10:15
PROVIDERS: ATTEND Internal Medicine Hematology & Oncology
DX: C34.11 Malignant neoplasm of upper lobe, right bronchus or lung (principal); J43.9 Emphysema, unspecified
CPT/HCPCS: 71260; 74160

== ENCOUNTER 2022-03-15 12:43 | Outpatient (RCR) | payer MEDICARE ==
[~2022-03-15 12:43] MED LIST changes: -CATHETER FLUSH 10 ML SYR IV PRN; +HEParin (CENTRAL IV FLUSH) 500 UNIT/5 ML SYR IV PRN; -HOLD METFORMIN - RECEIVED CONTRAST 20 ML VIAL IV SCH; -IOHEXOL 350 MG/ML 100 ML (OMNIPAQUE 350) VIAL IV ONE; +NS (IVPB) 250 ML IV SCH; -NS 100 ML (IVPB) BAG IV ONE; +PEMBROLIZUMAB 200 MG in NS (IVPB) 50 ML IV SCH
[2022-03-15 13:24] LABS: BASOPHILS # (AUTO) 0.1 10^3/uL (0.0-0.1); BASOPHILS % (AUTO) 1 % (0-10); EOSINOPHILS # (AUTO) 0.4 10^3/uL (0.0-0.3); EOSINOPHILS % (AUTO) 7 % (0-10); HEMATOCRIT 42 % (40-54); HEMOGLOBIN 13.4 g/dL (13.3-17.7); LYMPHOCYTES # (AUTO) 1.4 10^3/uL (1.0-4.0); LYMPHOCYTES % (AUTO) 22 % (12-44); MEAN CORPUSCULAR HEMOGLOBIN 29 pg (25-34); MEAN CORPUSCULAR HGB CONC 32 g/dL (32-36); MEAN CORPUSCULAR VOLUME 90 fL (80-99); MEAN PLATELET VOLUME 10.1 fL (9.0-12.2); MONOCYTES # (AUTO) 0.6 10^3/uL (0.0-1.0); MONOCYTES % (AUTO) 10 % (0-12); NEUTROPHILS # (AUTO) 3.7 10^3/uL (1.8-7.8); NEUTROPHILS % (AUTO) 59 % (42-75); PLATELET COUNT 181 10^3/uL (130-400); WHITE BLOOD COUNT 6.2 10^3/uL (4.3-11.0)
[2022-03-15 13:59] LABS: ALBUMIN 4.1 GM/DL (3.2-4.5); BILIRUBIN,TOTAL 0.5 MG/DL (0.1-1.0); CALCIUM 9.2 MG/DL (8.5-10.1); CREATININE SERUM 1.07 MG/DL (0.60-1.30); POTASSIUM 4.3 MMOL/L (3.6-5.0)
== END 2022-03-31 | disposition home or self-care (01) ==
LOC: ONC 12:43
PROVIDERS: ATTEND Internal Medicine Hematology & Oncology
DX: Z51.11 Encounter for antineoplastic chemotherapy (principal); Z45.2 Encounter for adjustment and management of vascular access device; C34.11 Malignant neoplasm of upper lobe, right bronchus or lung; C79.51 Secondary malignant neoplasm of bone; J44.9 Chronic obstructive pulmonary disease, unspecified; K76.0 Fatty (change of) liver, not elsewhere classified; I10 Essential (primary) hypertension; E11.9 Type 2 diabetes mellitus without complications; Z87.891 Personal history of nicotine dependence; Z92.3 Personal history of irradiation
CPT/HCPCS: 80053; 85025; 96413; G0463; 36591

== ENCOUNTER 2022-04-12 12:43 | Outpatient (RCR) | payer MEDICARE ==
[2022-04-12 13:07] LABS: BASOPHILS # (AUTO) 0.1 10^3/uL (0.0-0.1); BASOPHILS % (AUTO) 1 % (0-10); EOSINOPHILS # (AUTO) 0.2 10^3/uL (0.0-0.3); EOSINOPHILS % (AUTO) 3 % (0-10); HEMATOCRIT 41 % (40-54); HEMOGLOBIN 13.2 g/dL (13.3-17.7); LYMPHOCYTES # (AUTO) 1.3 X 10^3 (1.0-4.0); LYMPHOCYTES % (AUTO) 19 % (12-44); MEAN CORPUSCULAR HEMOGLOBIN 28 pg (25-34); MEAN CORPUSCULAR HGB CONC 32 g/dL (32-36); MEAN CORPUSCULAR VOLUME 89 fL (80-99); MEAN PLATELET VOLUME 10.1 fL (9.0-12.2); MONOCYTES # (AUTO) 0.7 X 10^3 (0.0-1.0); MONOCYTES % (AUTO) 10 % (0-12); NEUTROPHILS # (AUTO) 4.5 X 10^3 (1.8-7.8); NEUTROPHILS % (AUTO) 67 % (42-75); PLATELET COUNT 188 10^3/uL (130-400); WHITE BLOOD COUNT 6.8 10^3/uL (4.3-11.0)
[2022-04-12 13:23] LABS: BILIRUBIN,TOTAL 0.5 MG/DL (0.1-1.0); CALCIUM 9.3 MG/DL (8.5-10.1); CREATININE SERUM 1.24 MG/DL (0.60-1.30); POTASSIUM 4.3 MMOL/L (3.6-5.0); TOTAL PROTEIN 7.5 GM/DL (6.4-8.2)
== END 2022-05-01 | disposition home or self-care (01) ==
LOC: ONC 12:43
PROVIDERS: ATTEND Internal Medicine Hematology & Oncology
DX: Z51.11 Encounter for antineoplastic chemotherapy (principal); Z45.2 Encounter for adjustment and management of vascular access device; C34.11 Malignant neoplasm of upper lobe, right bronchus or lung; C79.51 Secondary malignant neoplasm of bone; J44.9 Chronic obstructive pulmonary disease, unspecified; K76.0 Fatty (change of) liver, not elsewhere classified; I10 Essential (primary) hypertension; E11.9 Type 2 diabetes mellitus without complications; Z87.891 Personal history of nicotine dependence; Z92.3 Personal history of irradiation
CPT/HCPCS: 36591; 80053; 85025; 96413

== ENCOUNTER 2022-05-24 12:55 | Outpatient (RCR) | payer MEDICARE ==
[2022-05-03 10:00] LABS: BASOPHILS # (AUTO) 0.1 10^3/uL (0.0-0.1); BASOPHILS % (AUTO) 1 % (0-10); EOSINOPHILS # (AUTO) 0.2 10^3/uL (0.0-0.3); EOSINOPHILS % (AUTO) 4 % (0-10); HEMATOCRIT 40 % (40-54); HEMOGLOBIN 13.2 g/dL (13.3-17.7); LYMPHOCYTES # (AUTO) 1.2 10^3/uL (1.0-4.0); LYMPHOCYTES % (AUTO) 22 % (12-44); MEAN CORPUSCULAR HEMOGLOBIN 29 pg (25-34); MEAN CORPUSCULAR HGB CONC 33 g/dL (32-36); MEAN CORPUSCULAR VOLUME 89 fL (80-99); MEAN PLATELET VOLUME 10.4 fL (9.0-12.2); MONOCYTES # (AUTO) 0.5 10^3/uL (0.0-1.0); MONOCYTES % (AUTO) 10 % (0-12); NEUTROPHILS # (AUTO) 3.3 10^3/uL (1.8-7.8); NEUTROPHILS % (AUTO) 62 % (42-75); PLATELET COUNT 154 10^3/uL (130-400); WHITE BLOOD COUNT 5.4 10^3/uL (4.3-11.0)
[2022-05-03 10:19] LABS: ALBUMIN 3.8 GM/DL (3.2-4.5); BILIRUBIN,TOTAL 0.5 MG/DL (0.1-1.0); CALCIUM 8.9 MG/DL (8.5-10.1); CREATININE SERUM 1.29 MG/DL (0.60-1.30); TOTAL PROTEIN 7.6 GM/DL (6.4-8.2)
[2022-05-24 13:38] LABS: BASOPHILS # (AUTO) 0.1 10^3/uL (0.0-0.1); BASOPHILS % (AUTO) 1 % (0-10); EOSINOPHILS # (AUTO) 0.3 10^3/uL (0.0-0.3); EOSINOPHILS % (AUTO) 5 % (0-10); HEMATOCRIT 42 % (40-54); HEMOGLOBIN 13.8 g/dL (13.3-17.7); LYMPHOCYTES # (AUTO) 1.5 10^3/uL (1.0-4.0); LYMPHOCYTES % (AUTO) 22 % (12-44); MEAN CORPUSCULAR HEMOGLOBIN 29 pg (25-34); MEAN CORPUSCULAR HGB CONC 33 g/dL (32-36); MEAN CORPUSCULAR VOLUME 87 fL (80-99); MEAN PLATELET VOLUME 10.2 fL (9.0-12.2); MONOCYTES # (AUTO) 0.8 10^3/uL (0.0-1.0); MONOCYTES % (AUTO) 12 % (0-12); NEUTROPHILS # (AUTO) 4.2 10^3/uL (1.8-7.8); NEUTROPHILS % (AUTO) 60 % (42-75); PLATELET COUNT 196 10^3/uL (130-400)
[2022-05-24 14:07] LABS: ALBUMIN 4.1 GM/DL (3.2-4.5); BILIRUBIN,TOTAL 0.5 MG/DL (0.1-1.0); CALCIUM 9.4 MG/DL (8.5-10.1); CREATININE SERUM 1.12 MG/DL (0.60-1.30); POTASSIUM 4.4 MMOL/L (3.6-5.0)
== END 2022-05-29 | disposition home or self-care (01) ==
LOC: ONC 12:55
PROVIDERS: ATTEND Internal Medicine Hematology & Oncology
DX: Z51.11 Encounter for antineoplastic chemotherapy (principal); Z45.2 Encounter for adjustment and management of vascular access device; C34.11 Malignant neoplasm of upper lobe, right bronchus or lung; C79.51 Secondary malignant neoplasm of bone; J44.9 Chronic obstructive pulmonary disease, unspecified; K76.0 Fatty (change of) liver, not elsewhere classified; I10 Essential (primary) hypertension; E11.9 Type 2 diabetes mellitus without complications; Z87.891 Personal history of nicotine dependence; Z92.3 Personal history of irradiation
CPT/HCPCS: 36591; 80053; 84443; 85025; 96413

== ENCOUNTER 2022-06-14 10:57 | Outpatient (RCR) | payer MEDICARE ==
[2022-06-14 11:43] LABS: BASOPHILS # (AUTO) 0.1 10^3/uL (0.0-0.1); BASOPHILS % (AUTO) 1 % (0-10); EOSINOPHILS # (AUTO) 0.3 10^3/uL (0.0-0.3); EOSINOPHILS % (AUTO) 5 % (0-10); HEMATOCRIT 40 % (40-54); LYMPHOCYTES # (AUTO) 1.3 10^3/uL (1.0-4.0); LYMPHOCYTES % (AUTO) 19 % (12-44); MEAN CORPUSCULAR HEMOGLOBIN 29 pg (25-34); MEAN CORPUSCULAR HGB CONC 32 g/dL (32-36); MEAN CORPUSCULAR VOLUME 89 fL (80-99); MEAN PLATELET VOLUME 10.2 fL (9.0-12.2); MONOCYTES # (AUTO) 0.6 10^3/uL (0.0-1.0); MONOCYTES % (AUTO) 9 % (0-12); NEUTROPHILS # (AUTO) 4.3 10^3/uL (1.8-7.8); NEUTROPHILS % (AUTO) 65 % (42-75); PLATELET COUNT 173 10^3/uL (130-400); WHITE BLOOD COUNT 6.6 10^3/uL (4.3-11.0)
[2022-06-14 12:03] LABS: ALBUMIN 3.9 GM/DL (3.2-4.5); BILIRUBIN,TOTAL 0.5 MG/DL (0.1-1.0); CALCIUM 9.1 MG/DL (8.5-10.1); CREATININE SERUM 1.11 MG/DL (0.60-1.30); POTASSIUM 4.2 MMOL/L (3.6-5.0); TOTAL PROTEIN 7.6 GM/DL (6.4-8.2)
== END 2022-06-29 | disposition home or self-care (01) ==
LOC: ONC 10:57
PROVIDERS: ATTEND Internal Medicine Hematology & Oncology
DX: Z51.11 Encounter for antineoplastic chemotherapy (principal); Z45.2 Encounter for adjustment and management of vascular access device; C34.11 Malignant neoplasm of upper lobe, right bronchus or lung; C79.51 Secondary malignant neoplasm of bone; J44.9 Chronic obstructive pulmonary disease, unspecified; K76.0 Fatty (change of) liver, not elsewhere classified; I10 Essential (primary) hypertension; E11.9 Type 2 diabetes mellitus without complications; Z87.891 Personal history of nicotine dependence; Z92.3 Personal history of irradiation
CPT/HCPCS: 36591; 80053; 84443; 85025; 96413

== ENCOUNTER 2022-07-26 10:24 | Outpatient (RCR) | payer MEDICARE ==
[2022-07-05 11:23] LABS: BASOPHILS # (AUTO) 0.1 10^3/uL (0.0-0.1); BASOPHILS % (AUTO) 1 % (0-10); EOSINOPHILS # (AUTO) 0.4 10^3/uL (0.0-0.3); EOSINOPHILS % (AUTO) 6 % (0-10); HEMATOCRIT 41 % (40-54); HEMOGLOBIN 13.2 g/dL (13.3-17.7); LYMPHOCYTES # (AUTO) 1.1 10^3/uL (1.0-4.0); LYMPHOCYTES % (AUTO) 18 % (12-44); MEAN CORPUSCULAR HEMOGLOBIN 29 pg (25-34); MEAN CORPUSCULAR HGB CONC 32 g/dL (32-36); MEAN CORPUSCULAR VOLUME 90 fL (80-99); MEAN PLATELET VOLUME 10.1 fL (9.0-12.2); MONOCYTES # (AUTO) 0.6 10^3/uL (0.0-1.0); MONOCYTES % (AUTO) 10 % (0-12); NEUTROPHILS # (AUTO) 4.2 10^3/uL (1.8-7.8); NEUTROPHILS % (AUTO) 65 % (42-75); PLATELET COUNT 171 10^3/uL (130-400); WHITE BLOOD COUNT 6.4 10^3/uL (4.3-11.0)
[2022-07-05 11:41] LABS: BILIRUBIN,TOTAL 0.5 MG/DL (0.1-1.0); CALCIUM 9.3 MG/DL (8.5-10.1); CREATININE SERUM 1.24 MG/DL (0.60-1.30); POTASSIUM 4.2 MMOL/L (3.6-5.0); TOTAL PROTEIN 7.6 GM/DL (6.4-8.2)
[2022-07-26 10:48] LABS: BASOPHILS # (AUTO) 0.1 10^3/uL (0.0-0.1); BASOPHILS % (AUTO) 1 % (0-10); EOSINOPHILS # (AUTO) 0.3 10^3/uL (0.0-0.3); EOSINOPHILS % (AUTO) 6 % (0-10); HEMATOCRIT 42 % (40-54); HEMOGLOBIN 13.3 g/dL (13.3-17.7); LYMPHOCYTES # (AUTO) 1.3 10^3/uL (1.0-4.0); LYMPHOCYTES % (AUTO) 23 % (12-44); MEAN CORPUSCULAR HEMOGLOBIN 29 pg (25-34); MEAN CORPUSCULAR HGB CONC 32 g/dL (32-36); MEAN CORPUSCULAR VOLUME 90 fL (80-99); MEAN PLATELET VOLUME 10.3 fL (9.0-12.2); MONOCYTES # (AUTO) 0.6 10^3/uL (0.0-1.0); MONOCYTES % (AUTO) 11 % (0-12); NEUTROPHILS # (AUTO) 3.2 10^3/uL (1.8-7.8); NEUTROPHILS % (AUTO) 59 % (42-75); PLATELET COUNT 184 10^3/uL (130-400); WHITE BLOOD COUNT 5.4 10^3/uL (4.3-11.0)
[2022-07-26 11:09] LABS: ALBUMIN 4.1 GM/DL (3.2-4.5); BILIRUBIN,TOTAL 0.6 MG/DL (0.1-1.0); CALCIUM 8.9 MG/DL (8.5-10.1); CREATININE SERUM 1.14 MG/DL (0.60-1.30); POTASSIUM 4.2 MMOL/L (3.6-5.0); TOTAL PROTEIN 7.9 GM/DL (6.4-8.2)
== END 2022-07-29 | disposition home or self-care (01) ==
LOC: ONC 10:24
PROVIDERS: ATTEND Internal Medicine Hematology & Oncology
DX: Z51.11 Encounter for antineoplastic chemotherapy (principal); Z45.2 Encounter for adjustment and management of vascular access device; C34.11 Malignant neoplasm of upper lobe, right bronchus or lung; C79.51 Secondary malignant neoplasm of bone; J44.9 Chronic obstructive pulmonary disease, unspecified; K76.0 Fatty (change of) liver, not elsewhere classified; I10 Essential (primary) hypertension; E11.9 Type 2 diabetes mellitus without complications; Z87.891 Personal history of nicotine dependence; Z92.3 Personal history of irradiation
CPT/HCPCS: 36591; 80053; 84443; 85025; 96413

== ENCOUNTER → 2022-08-13 | Outpatient (CLI) | payer MEDICARE ==
[~2022-08-13] MED LIST changes: -HEParin (CENTRAL IV FLUSH) 500 UNIT/5 ML SYR IV PRN; -NS (IVPB) 250 ML IV SCH; -PEMBROLIZUMAB 200 MG in NS (IVPB) 50 ML IV SCH
[2022-08-13 11:18] VITALS: BP 154/76
== END ==
LOC: CARD 10:56
PROVIDERS: ATTEND Physician Assistant
DX: R07.9 Chest pain, unspecified (principal)

== ENCOUNTER 2022-08-16 11:57 | Outpatient (RCR) | payer MEDICARE ==
[~2022-08-16 11:57] MED LIST changes: +HEParin (CENTRAL IV FLUSH) 500 UNIT/5 ML SYR IV PRN; +NS (IVPB) 250 ML IV SCH; +PEMBROLIZUMAB 200 MG in NS (IVPB) 50 ML IV SCH; -RT-ALBUTEROL SULF 2.5 MG/3 ML PRE-MIX VIAL INH ONE
[2022-08-16 13:22] LABS: BASOPHILS # (AUTO) 0.1 10^3/uL (0.0-0.1); BASOPHILS % (AUTO) 1 % (0-10); EOSINOPHILS # (AUTO) 0.2 10^3/uL (0.0-0.3); EOSINOPHILS % (AUTO) 4 % (0-10); HEMATOCRIT 39 % (40-54); HEMOGLOBIN 12.7 g/dL (13.3-17.7); LYMPHOCYTES % (AUTO) 16 % (12-44); MEAN CORPUSCULAR HEMOGLOBIN 29 pg (25-34); MEAN CORPUSCULAR HGB CONC 32 g/dL (32-36); MEAN CORPUSCULAR VOLUME 89 fL (80-99); MEAN PLATELET VOLUME 10.3 fL (9.0-12.2); MONOCYTES # (AUTO) 0.6 10^3/uL (0.0-1.0); MONOCYTES % (AUTO) 10 % (0-12); NEUTROPHILS # (AUTO) 4.1 10^3/uL (1.8-7.8); NEUTROPHILS % (AUTO) 68 % (42-75); PLATELET COUNT 186 10^3/uL (130-400)
[2022-08-16 13:30] LABS: ALBUMIN 3.9 GM/DL (3.2-4.5)
[2022-08-16 13:31] LABS: CALCIUM 8.8 MG/DL (8.5-10.1)
[2022-08-16 13:33] LABS: TOTAL PROTEIN 7.3 GM/DL (6.4-8.2)
[2022-08-16 13:35] LABS: BILIRUBIN,TOTAL 0.5 MG/DL (0.1-1.0)
[2022-08-16 13:36] LABS: CREATININE SERUM 1.08 MG/DL (0.60-1.30)
== END 2022-08-29 | disposition home or self-care (01) ==
LOC: ONC 11:57
PROVIDERS: ATTEND Internal Medicine Hematology & Oncology
DX: Z51.11 Encounter for antineoplastic chemotherapy (principal); Z45.2 Encounter for adjustment and management of vascular access device; C34.11 Malignant neoplasm of upper lobe, right bronchus or lung; C79.51 Secondary malignant neoplasm of bone; J44.9 Chronic obstructive pulmonary disease, unspecified; K76.0 Fatty (change of) liver, not elsewhere classified; I10 Essential (primary) hypertension; E11.9 Type 2 diabetes mellitus without complications; N20.0 Calculus of kidney; Z87.891 Personal history of nicotine dependence; Z92.3 Personal history of irradiation
CPT/HCPCS: 36591; 80053; 85025; 96413

== ENCOUNTER → 2022-08-16 | Outpatient (CLI) | payer MEDICARE ==
[~2022-08-16] MED LIST changes: +RT-ALBUTEROL SULF 2.5 MG/3 ML PRE-MIX VIAL INH ONE
== END ==
LOC: RT 10:25
PROVIDERS: ATTEND Nurse Practitioner Family
DX: J44.9 Chronic obstructive pulmonary disease, unspecified (principal); C34.90 Malignant neoplasm of unspecified part of unspecified bronchus or lung; R09.02 Hypoxemia
CPT/HCPCS: 94060; 94621; 94726; 94729

== ENCOUNTER → 2022-09-03 | Outpatient (CLI) | payer MEDICARE ==
[~2022-09-03] MED LIST changes: -HEParin (CENTRAL IV FLUSH) 500 UNIT/5 ML SYR IV PRN; +IOHEXOL 350 MG/ML 100 ML (OMNIPAQUE 350) VIAL IV ONE; -NS (IVPB) 250 ML IV SCH; +NS 100 ML (IVPB) BAG IV ONE; -PEMBROLIZUMAB 200 MG in NS (IVPB) 50 ML IV SCH
--- NOTE | 2022-09-03 12:42 | Diagnostic Imaging Report ---
PROCEDURE: CT chest and abdomen with contrast. TECHNIQUE: Multiple contiguous axial images were obtained through the chest and abdomen after the administration of intravenous contrast. Auto Exposure Controls were utilized during the CT exam to meet ALARA standards for radiation dose reduction. INDICATION: Lung cancer. Undergoing treatment. COMPARISON: 03/05/2022. FINDINGS: CHEST: Paraseptal emphysema and some right medial upper lobe paramediastinal fibrosis are stable. The partly calcified mass in the left lower lobe posterior to the descending thoracic aorta is unchanged at 3.3 x 2.2 cm. There are a few mediastinal lymph nodes, none of which are pathologic and unchanged. No suspicious lymph nodes. No new lung mass. No pneumonia. A small pericardial effusion is present. No pleural effusion. No acute or suspicious bony abnormality. ABDOMEN: There is a fatty liver but no liver mass. There is an incidental splenule in the left upper quadrant. The adrenals are negative. The pancreas is unremarkable. The gallbladder is absent. No biliary ductal dilatation. The kidneys are unobstructed. There is a ventral supraumbilical fatty abdominal wall hernia, chronic. 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 There is a nonobstructing calculus in a left renal lower pole, chronic. IMPRESSION: CHEST: Stable left lower lobe lung mass and severe underlying emphysema. ABDOMEN: No findings of abdominal metastatic disease or interval change. Dictated by: Dictated on workstation # [id number]
== END ==
LOC: RAD 11:21
PROVIDERS: ATTEND Internal Medicine Hematology & Oncology
DX: J43.9 Emphysema, unspecified (principal); C34.11 Malignant neoplasm of upper lobe, right bronchus or lung; R91.8 Other nonspecific abnormal finding of lung field
CPT/HCPCS: 71260; 74160

== ENCOUNTER 2022-09-27 08:12 | Outpatient (RCR) | payer MEDICARE ==
[2022-09-06 11:23] LABS: BASOPHILS # (AUTO) 0.1 10^3/uL (0.0-0.1); BASOPHILS % (AUTO) 1 % (0-10); EOSINOPHILS # (AUTO) 0.4 10^3/uL (0.0-0.3); EOSINOPHILS % (AUTO) 6 % (0-10); HEMATOCRIT 42 % (40-54); HEMOGLOBIN 13.5 g/dL (13.3-17.7); LYMPHOCYTES # (AUTO) 1.3 10^3/uL (1.0-4.0); LYMPHOCYTES % (AUTO) 21 % (12-44); MEAN CORPUSCULAR HEMOGLOBIN 29 pg (25-34); MEAN CORPUSCULAR HGB CONC 33 g/dL (32-36); MEAN CORPUSCULAR VOLUME 89 fL (80-99); MONOCYTES # (AUTO) 0.6 10^3/uL (0.0-1.0); MONOCYTES % (AUTO) 10 % (0-12); NEUTROPHILS # (AUTO) 3.8 10^3/uL (1.8-7.8); NEUTROPHILS % (AUTO) 62 % (42-75); PLATELET COUNT 173 10^3/uL (130-400); WHITE BLOOD COUNT 6.2 10^3/uL (4.3-11.0)
[2022-09-06 11:39] LABS: BILIRUBIN,TOTAL 0.6 MG/DL (0.1-1.0); CREATININE SERUM 1.18 MG/DL (0.60-1.30); POTASSIUM 4.4 MMOL/L (3.6-5.0); TOTAL PROTEIN 7.6 GM/DL (6.4-8.2)
[2022-09-06 12:02] VITALS: BP 130/77
[2022-09-06] MEDS: PEMBROLIZUMAB 200 MG in NS (IVPB) 50 ML IV SCH (12:07)
[~2022-09-27] VITALS: Ht 167.6 cm; Wt 87.1 kg
[~2022-09-27 08:12] MED LIST changes: +HEParin (CENTRAL IV FLUSH) 500 UNIT/5 ML SYR IV PRN; -IOHEXOL 350 MG/ML 100 ML (OMNIPAQUE 350) VIAL IV ONE; +NS (IVPB) 250 ML IV SCH; -NS 100 ML (IVPB) BAG IV ONE
[2022-09-27 10:42] LABS: BASOPHILS # (AUTO) 0.1 10^3/uL (0.0-0.1); BASOPHILS % (AUTO) 1 % (0-10); EOSINOPHILS # (AUTO) 0.2 10^3/uL (0.0-0.3); EOSINOPHILS % (AUTO) 4 % (0-10); HEMATOCRIT 41 % (40-54); HEMOGLOBIN 12.9 g/dL (13.3-17.7); LYMPHOCYTES # (AUTO) 1.1 10^3/uL (1.0-4.0); LYMPHOCYTES % (AUTO) 20 % (12-44); MEAN CORPUSCULAR HEMOGLOBIN 28 pg (25-34); MEAN CORPUSCULAR HGB CONC 31 g/dL (32-36); MEAN CORPUSCULAR VOLUME 91 fL (80-99); MEAN PLATELET VOLUME 10.8 fL (9.0-12.2); MONOCYTES # (AUTO) 0.5 10^3/uL (0.0-1.0); MONOCYTES % (AUTO) 9 % (0-12); NEUTROPHILS # (AUTO) 3.6 10^3/uL (1.8-7.8); NEUTROPHILS % (AUTO) 65 % (42-75); PLATELET COUNT 155 10^3/uL (130-400); WHITE BLOOD COUNT 5.6 10^3/uL (4.3-11.0)
[2022-09-27 10:52] LABS: POTASSIUM 4.2 MMOL/L (3.6-5.0)
[2022-09-27 10:53] LABS: CALCIUM 8.9 MG/DL (8.5-10.1)
[2022-09-27 10:54] LABS: TOTAL PROTEIN 7.5 GM/DL (6.4-8.2)
[2022-09-27 10:56] LABS: BILIRUBIN,TOTAL 0.5 MG/DL (0.1-1.0)
[2022-09-27 10:58] LABS: CREATININE SERUM 1.24 MG/DL (0.60-1.30)
[2022-09-27] MEDS: PEMBROLIZUMAB 200 MG in NS (IVPB) 50 ML IV SCH (11:01)
[2022-09-27 11:40] VITALS: BP 130/69
== END 2022-09-28 | disposition home or self-care (01) ==
LOC: ONC 08:12
PROVIDERS: ATTEND Internal Medicine Hematology & Oncology
DX: Z51.11 Encounter for antineoplastic chemotherapy (principal); Z45.2 Encounter for adjustment and management of vascular access device; C34.11 Malignant neoplasm of upper lobe, right bronchus or lung; C79.51 Secondary malignant neoplasm of bone; J44.9 Chronic obstructive pulmonary disease, unspecified; I10 Essential (primary) hypertension; E11.9 Type 2 diabetes mellitus without complications; Z87.891 Personal history of nicotine dependence; Z92.3 Personal history of irradiation
CPT/HCPCS: 36591; 80053; 85025; 96413

== ENCOUNTER 2022-10-18 12:40 | Outpatient (RCR) | payer MEDICARE ==
[~2022-10-18] VITALS: Ht 167.6 cm; Wt 87.3 kg
[~2022-10-18 12:40] MED LIST changes: +NS (IVPB) 250 ML 250 ML IV SCH; -NS (IVPB) 250 ML IV SCH; +PEMBROLIZUMAB 200 MG in NS (IVPB) 50 ML 50 ML IV SCH
[2022-10-18 13:10] LABS: BASOPHILS # (AUTO) 0.1 10^3/uL (0.0-0.1); BASOPHILS % (AUTO) 1 % (0-10); EOSINOPHILS # (AUTO) 0.3 10^3/uL (0.0-0.3); EOSINOPHILS % (AUTO) 4 % (0-10); HEMATOCRIT 41 % (40-54); LYMPHOCYTES # (AUTO) 1.2 10^3/uL (1.0-4.0); LYMPHOCYTES % (AUTO) 20 % (12-44); MEAN CORPUSCULAR HEMOGLOBIN 29 pg (25-34); MEAN CORPUSCULAR HGB CONC 31 g/dL (32-36); MEAN CORPUSCULAR VOLUME 91 fL (80-99); MONOCYTES # (AUTO) 0.6 10^3/uL (0.0-1.0); MONOCYTES % (AUTO) 9 % (0-12); NEUTROPHILS # (AUTO) 4.1 10^3/uL (1.8-7.8); NEUTROPHILS % (AUTO) 65 % (42-75); PLATELET COUNT 169 10^3/uL (130-400); WHITE BLOOD COUNT 6.3 10^3/uL (4.3-11.0)
[2022-10-18 13:36] LABS: BILIRUBIN,TOTAL 0.6 MG/DL (0.1-1.0); CALCIUM 8.8 MG/DL (8.5-10.1); CREATININE SERUM 1.1 MG/DL (0.60-1.30); POTASSIUM 4.3 MMOL/L (3.6-5.0); TOTAL PROTEIN 7.6 GM/DL (6.4-8.2)
[2022-10-18 13:51] VITALS: BP 108/66
== END 2022-10-29 | disposition home or self-care (01) ==
LOC: ONC 12:40
PROVIDERS: ATTEND Internal Medicine Hematology & Oncology
DX: Z51.11 Encounter for antineoplastic chemotherapy (principal); Z45.2 Encounter for adjustment and management of vascular access device; C34.11 Malignant neoplasm of upper lobe, right bronchus or lung; C79.51 Secondary malignant neoplasm of bone; J43.9 Emphysema, unspecified; I10 Essential (primary) hypertension; E11.9 Type 2 diabetes mellitus without complications; Z87.891 Personal history of nicotine dependence; Z92.3 Personal history of irradiation
CPT/HCPCS: 36591; 80053; 85025; 96413

== ENCOUNTER → 2022-11-29 | Outpatient (RCR) | payer MEDICARE ==
[2022-11-08 13:35] LABS: BASOPHILS # (AUTO) 0.1 10^3/uL (0.0-0.1); BASOPHILS % (AUTO) 1 % (0-10); EOSINOPHILS # (AUTO) 0.3 10^3/uL (0.0-0.3); EOSINOPHILS % (AUTO) 4 % (0-10); HEMATOCRIT 41 % (40-54); HEMOGLOBIN 12.9 g/dL (13.3-17.7); LYMPHOCYTES # (AUTO) 1.2 10^3/uL (1.0-4.0); LYMPHOCYTES % (AUTO) 18 % (12-44); MEAN CORPUSCULAR HEMOGLOBIN 29 pg (25-34); MEAN CORPUSCULAR HGB CONC 31 g/dL (32-36); MEAN CORPUSCULAR VOLUME 92 fL (80-99); MONOCYTES # (AUTO) 0.7 10^3/uL (0.0-1.0); MONOCYTES % (AUTO) 10 % (0-12); NEUTROPHILS # (AUTO) 4.7 10^3/uL (1.8-7.8); NEUTROPHILS % (AUTO) 67 % (42-75); PLATELET COUNT 211 10^3/uL (130-400)
[2022-11-08] MEDS: NS (IVPB) 250 ML 250 ML IV SCH (13:53)
[2022-11-08 13:57] VITALS: BP 131/74
[2022-11-08 13:57] LABS: ALBUMIN 3.8 GM/DL (3.2-4.5); BILIRUBIN,TOTAL 0.6 MG/DL (0.1-1.0); CALCIUM 8.8 MG/DL (8.5-10.1); CREATININE SERUM 1.11 MG/DL (0.60-1.30); POTASSIUM 4.2 MMOL/L (3.6-5.0); TOTAL PROTEIN 7.6 GM/DL (6.4-8.2)
[2022-11-08] MEDS: PEMBROLIZUMAB 200 MG in NS (IVPB) 50 ML 50 ML IV SCH (14:06)
[~2022-11-29] VITALS: Ht 167.6 cm; Wt 85.8 kg
[~2022-11-29] MED LIST changes: -NS (IVPB) 250 ML 250 ML IV SCH; -PEMBROLIZUMAB 200 MG in NS (IVPB) 50 ML 50 ML IV SCH
[2022-11-29 13:25] LABS: BASOPHILS # (AUTO) 0.1 10^3/uL (0.0-0.1); BASOPHILS % (AUTO) 1 % (0-10); EOSINOPHILS # (AUTO) 0.3 10^3/uL (0.0-0.3); EOSINOPHILS % (AUTO) 5 % (0-10); HEMATOCRIT 42 % (40-54); HEMOGLOBIN 12.9 g/dL (13.3-17.7); LYMPHOCYTES # (AUTO) 1.3 10^3/uL (1.0-4.0); LYMPHOCYTES % (AUTO) 19 % (12-44); MEAN CORPUSCULAR HEMOGLOBIN 28 pg (25-34); MEAN CORPUSCULAR HGB CONC 31 g/dL (32-36); MEAN CORPUSCULAR VOLUME 92 fL (80-99); MEAN PLATELET VOLUME 10.1 fL (9.0-12.2); MONOCYTES # (AUTO) 0.7 10^3/uL (0.0-1.0); MONOCYTES % (AUTO) 10 % (0-12); NEUTROPHILS # (AUTO) 4.4 10^3/uL (1.8-7.8); NEUTROPHILS % (AUTO) 64 % (42-75); PLATELET COUNT 206 10^3/uL (130-400); WHITE BLOOD COUNT 6.8 10^3/uL (4.3-11.0)
[2022-11-29 13:50] VITALS: BP 118/64
[2022-11-29 13:55] LABS: BILIRUBIN,TOTAL 0.7 MG/DL (0.1-1.0); CALCIUM 8.9 MG/DL (8.5-10.1); CREATININE SERUM 1.17 MG/DL (0.60-1.30); POTASSIUM 4.3 MMOL/L (3.6-5.0); TOTAL PROTEIN 7.9 GM/DL (6.4-8.2)
[2022-11-29] MEDS: NS (IVPB) 250 ML 250 ML IV SCH (14:01)
[2022-11-29] MEDS: PEMBROLIZUMAB 200 MG in NS (IVPB) 50 ML 50 ML IV SCH (14:01)
== END | disposition home or self-care (01) ==
LOC: ONC 11-08 13:16
PROVIDERS: ATTEND Internal Medicine Hematology & Oncology
DX: Z51.11 Encounter for antineoplastic chemotherapy (principal); Z45.2 Encounter for adjustment and management of vascular access device; C34.11 Malignant neoplasm of upper lobe, right bronchus or lung; C79.51 Secondary malignant neoplasm of bone; E11.9 Type 2 diabetes mellitus without complications; I10 Essential (primary) hypertension; K76.0 Fatty (change of) liver, not elsewhere classified; J44.9 Chronic obstructive pulmonary disease, unspecified; Z92.3 Personal history of irradiation
CPT/HCPCS: 80053; 85025; 96413; G0463; 36591; 99214

== ENCOUNTER 2023-01-10 08:26 | Outpatient (RCR) | payer MEDICARE ==
[~2023-01-10 08:26] MED LIST changes: +NS (IVPB) 250 ML 250 ML IV SCH; +PEMBROLIZUMAB 200 MG in NS (IVPB) 50 ML 50 ML IV SCH
[2023-01-10 13:36] VITALS: BP 109/64
[2023-01-10 13:44] LABS: BASOPHILS # (AUTO) 0.1 10^3/uL (0.0-0.1); BASOPHILS % (AUTO) 1 % (0-10); EOSINOPHILS # (AUTO) 0.3 10^3/uL (0.0-0.3); EOSINOPHILS % (AUTO) 4 % (0-10); HEMATOCRIT 42 % (40-54); HEMOGLOBIN 13.1 g/dL (13.3-17.7); LYMPHOCYTES # (AUTO) 1.3 10^3/uL (1.0-4.0); LYMPHOCYTES % (AUTO) 19 % (12-44); MEAN CORPUSCULAR HEMOGLOBIN 29 pg (25-34); MEAN CORPUSCULAR HGB CONC 32 g/dL (32-36); MEAN CORPUSCULAR VOLUME 90 fL (80-99); MEAN PLATELET VOLUME 10.6 fL (9.0-12.2); MONOCYTES # (AUTO) 0.6 10^3/uL (0.0-1.0); MONOCYTES % (AUTO) 9 % (0-12); NEUTROPHILS # (AUTO) 4.5 10^3/uL (1.8-7.8); NEUTROPHILS % (AUTO) 66 % (42-75); PLATELET COUNT 176 10^3/uL (130-400); WHITE BLOOD COUNT 6.9 10^3/uL (4.3-11.0)
[2023-01-10 14:04] LABS: ALBUMIN 4.1 GM/DL (3.2-4.5); BILIRUBIN,TOTAL 0.6 MG/DL (0.1-1.0); CALCIUM 9.1 MG/DL (8.5-10.1); CREATININE SERUM 1.18 MG/DL (0.60-1.30); POTASSIUM 4.3 MMOL/L (3.6-5.0); TOTAL PROTEIN 7.9 GM/DL (6.4-8.2)
== END 2023-01-29 | disposition home or self-care (01) ==
LOC: ONC 08:26
PROVIDERS: ATTEND Internal Medicine Hematology & Oncology
DX: Z51.11 Encounter for antineoplastic chemotherapy (principal); Z45.2 Encounter for adjustment and management of vascular access device; C34.11 Malignant neoplasm of upper lobe, right bronchus or lung; C79.51 Secondary malignant neoplasm of bone; E11.9 Type 2 diabetes mellitus without complications; I10 Essential (primary) hypertension; K76.0 Fatty (change of) liver, not elsewhere classified; J44.9 Chronic obstructive pulmonary disease, unspecified; Z92.3 Personal history of irradiation
CPT/HCPCS: 80053; 84443; 85025; 96413; G0463; 36591; 99214

== ENCOUNTER → 2023-02-15 | Outpatient (CLI) | payer MEDICARE ==
[~2023-02-15] MED LIST changes: -HEParin (CENTRAL IV FLUSH) 500 UNIT/5 ML SYR IV PRN; -NS (IVPB) 250 ML 250 ML IV SCH; -PEMBROLIZUMAB 200 MG in NS (IVPB) 50 ML 50 ML IV SCH
--- NOTE | 2023-02-15 15:52 | Diagnostic Imaging Report ---
Indication: Right lung cancer. Time of Exam: 1:59 PM Correlation is made with prior chest radiograph from 08/04/2020. The heart size is normal. Left chest wall port has tip overlying the SVC. There are some interstitial changes throughout both lungs which are likely chronic. Emphysematous changes throughout both lungs are again noted. There is no consolidation. No effusion or pneumothorax is identified. IMPRESSION: Emphysematous and interstitial changes, as described. No other significant abnormality is detected. Dictated by: Dictated on workstation # [id number]
== END ==
LOC: RAD 13:38
PROVIDERS: ATTEND Nurse Practitioner Family
DX: J43.1 Panlobular emphysema (principal); C34.91 Malignant neoplasm of unspecified part of right bronchus or lung; R09.02 Hypoxemia
CPT/HCPCS: 71046

== ENCOUNTER 2023-02-20 07:50 | Outpatient (RCR) | payer MEDICARE ==
[2023-01-31 13:34] VITALS: BP 140/66
[2023-01-31 13:39] LABS: BASOPHILS # (AUTO) 0.1 10^3/uL (0.0-0.1); BASOPHILS % (AUTO) 1 % (0-10); EOSINOPHILS # (AUTO) 0.3 10^3/uL (0.0-0.3); EOSINOPHILS % (AUTO) 5 % (0-10); HEMATOCRIT 42 % (40-54); LYMPHOCYTES # (AUTO) 1.2 10^3/uL (1.0-4.0); LYMPHOCYTES % (AUTO) 20 % (12-44); MEAN CORPUSCULAR HEMOGLOBIN 28 pg (25-34); MEAN CORPUSCULAR HGB CONC 31 g/dL (32-36); MEAN CORPUSCULAR VOLUME 92 fL (80-99); MEAN PLATELET VOLUME 10.2 fL (9.0-12.2); MONOCYTES # (AUTO) 0.6 10^3/uL (0.0-1.0); MONOCYTES % (AUTO) 11 % (0-12); NEUTROPHILS # (AUTO) 3.7 10^3/uL (1.8-7.8); NEUTROPHILS % (AUTO) 63 % (42-75); PLATELET COUNT 183 10^3/uL (130-400); WHITE BLOOD COUNT 5.8 10^3/uL (4.3-11.0)
[2023-01-31 14:01] LABS: BILIRUBIN,TOTAL 0.7 MG/DL (0.1-1.0); CALCIUM 8.7 MG/DL (8.5-10.1); CREATININE SERUM 1.11 MG/DL (0.60-1.30); TOTAL PROTEIN 7.4 GM/DL (6.4-8.2)
[2023-01-31] MEDS: PEMBROLIZUMAB 200 MG in NS (IVPB) 50 ML 50 ML IV SCH (14:13)
[2023-01-31] MEDS: NS (IVPB) 250 ML 250 ML IV SCH (14:13)
[~2023-02-20] VITALS: Ht 167.6 cm; Wt 86.5 kg
[~2023-02-20 07:50] MED LIST changes: +HEParin (CENTRAL IV FLUSH) 500 UNIT/5 ML SYR IV PRN
[2023-02-20 13:26] LABS: BASOPHILS % (AUTO) 1 % (0-10); EOSINOPHILS # (AUTO) 0.2 10^3/uL (0.0-0.3); EOSINOPHILS % (AUTO) 4 % (0-10); HEMATOCRIT 39 % (40-54); HEMOGLOBIN 12.2 g/dL (13.3-17.7); LYMPHOCYTES # (AUTO) 0.8 10^3/uL (1.0-4.0); LYMPHOCYTES % (AUTO) 13 % (12-44); MEAN CORPUSCULAR HEMOGLOBIN 28 pg (25-34); MEAN CORPUSCULAR HGB CONC 31 g/dL (32-36); MEAN CORPUSCULAR VOLUME 90 fL (80-99); MONOCYTES # (AUTO) 0.6 10^3/uL (0.0-1.0); MONOCYTES % (AUTO) 9 % (0-12); NEUTROPHILS # (AUTO) 4.6 10^3/uL (1.8-7.8); NEUTROPHILS % (AUTO) 73 % (42-75); PLATELET COUNT 194 10^3/uL (130-400); WHITE BLOOD COUNT 6.4 10^3/uL (4.3-11.0)
[2023-02-20 13:46] LABS: ALBUMIN 3.8 GM/DL (3.2-4.5); BILIRUBIN,TOTAL 0.8 MG/DL (0.1-1.0); CALCIUM 8.9 MG/DL (8.5-10.1); CREATININE SERUM 1.08 MG/DL (0.60-1.30); POTASSIUM 4.3 MMOL/L (3.6-5.0)
[2023-02-20 13:55] VITALS: BP 144/76
[2023-02-20] MEDS: PEMBROLIZUMAB 200 MG in NS (IVPB) 50 ML 50 ML IV SCH (13:58)
[2023-02-20] MEDS: NS (IVPB) 250 ML 250 ML IV SCH (13:59)
== END 2023-02-28 | disposition home or self-care (01) ==
LOC: ONC 07:50
PROVIDERS: ATTEND Internal Medicine Hematology & Oncology
DX: Z51.11 Encounter for antineoplastic chemotherapy (principal); Z45.2 Encounter for adjustment and management of vascular access device; C34.11 Malignant neoplasm of upper lobe, right bronchus or lung; C79.51 Secondary malignant neoplasm of bone; E11.9 Type 2 diabetes mellitus without complications; I10 Essential (primary) hypertension; K76.0 Fatty (change of) liver, not elsewhere classified; J44.9 Chronic obstructive pulmonary disease, unspecified; Z92.3 Personal history of irradiation
CPT/HCPCS: 80053; 84443; 85025; 96413; G0463; 36591; 99214

== ENCOUNTER → 2023-02-20 | Outpatient (CLI) | payer MEDICARE ==
--- NOTE | 2023-02-20 16:47 | Diagnostic Imaging Report ---
EXAMINATION: Right upper extremity venous ultrasound TECHNIQUE: Right upper extremity venous Doppler HISTORY: Right upper extremity pain and edema. COMPARISON: None available. FINDINGS: Thrombus within the distal right subclavian vein to the distal right brachial vein with extension into the basilic and cephalic veins. IMPRESSION: Deep venous thrombus within the distal right subclavian vein to the distal right brachial vein with extension into the basilic and cephalic veins. Dictated by: Dictated on workstation # [id number]
== END ==
LOC: RAD 14:56
PROVIDERS: ATTEND Internal Medicine Hematology & Oncology
DX: I82.B11 Acute embolism and thrombosis of right subclavian vein (principal); I82.621 Acute embolism and thrombosis of deep veins of right upper extremity

== ENCOUNTER → 2023-03-11 | Outpatient (CLI) | payer MEDICARE ==
[~2023-03-11] MED LIST changes: +CATHETER FLUSH 10 ML SYR IV PRN; -HEParin (CENTRAL IV FLUSH) 500 UNIT/5 ML SYR IV PRN; +HOLD METFORMIN - RECEIVED CONTRAST 20 ML VIAL IV SCH; +IOHEXOL 350 MG/ML 100 ML (OMNIPAQUE 350) VIAL IV ONE; +NS 100 ML (IVPB) BAG IV ONE
--- NOTE | 2023-03-11 15:54 | Diagnostic Imaging Report ---
INDICATION: Lung cancer, follow-up. TECHNIQUE: Multiple contiguous axial images were obtained through the chest, abdomen, and pelvis after the administration of intravenous contrast. Auto Exposure Controls were utilized during the CT exam to meet ALARA standards for radiation dose reduction. Comparison made to prior study 09/03/2022. CT CHEST FINDINGS: There are no enlarged mediastinal or hilar nodes. There are no enlarged axillary nodes. Tubular dilated structure in the right axilla is noted, worrisome for thrombosed right axillary and subclavian vein. Consider Doppler study of the right upper extremity venous system for further evaluation. There is no pleural or pericardial fluid. There is fairly extensive emphysematous change throughout both lungs. There are paramediastinal fibrotic changes which may represent radiation change; correlate with clinical history. Left lower lobe lung mass posteromedially is noted, just posterior to the descending aorta. The mass measures about 3.2 x 2.4 cm, with minimal change compared to the previous study, in which it measured 3.3 x 2.2 cm. There are a few speckled calcifications within the lesion. CT ABDOMEN AND PELVIS FINDINGS: The liver shows mild diffuse fatty change without focal lesion. Gallbladder is absent. Spleen, adrenals, and pancreas are normal in appearance. The kidneys bilaterally appear normal, except for a nonocclusive stone in the left kidney. There is no retroperitoneal mass or adenopathy. There is atherosclerotic change of the aorta without evidence of aneurysm. There is a small fat-containing periumbilical hernia. There is no pelvic lymphadenopathy. The prostate gland appears enlarged. There is a fat-containing right inguinal hernia. IMPRESSION: CT chest shows stable size and appearance of left lower lobe pulmonary nodule. Extensive emphysematous changes throughout both lungs as well as paramediastinal fibrotic changes which may represent previous radiation treatment or underlying fibrosis. There is a new area of tubular increased density and edema in the right axillary region and subclavian region, suspicious for a thrombosed right axillary and subclavian vein. Would recommend further evaluation with ultrasound. CT abdomen and pelvis demonstrates no overt metastatic disease. There is mild fatty change in the liver. There is a ventral hernia in the periumbilical region containing fat as well as a fat-containing right inguinal hernia. There is prostatic enlargement. Dictated by: Dictated on workstation # [id number]
== END ==
LOC: RAD 12:40
PROVIDERS: ATTEND Internal Medicine Hematology & Oncology
DX: C34.11 Malignant neoplasm of upper lobe, right bronchus or lung (principal); K76.0 Fatty (change of) liver, not elsewhere classified; K43.9 Ventral hernia without obstruction or gangrene; K40.90 Unilateral inguinal hernia, without obstruction or gangrene, not specified as recurrent; N40.0 Benign prostatic hyperplasia without lower urinary tract symptoms
CPT/HCPCS: 71260; 74177